=== PATIENT | female | born 1945 | race Caucasian/White ===

== ENCOUNTER 2017-07-29 15:10 | Inpatient (IN) ==
--- NOTE | 2017-07-29 15:28 | Emergency Department Note ---
Altered Mental Status HPI - General Chief Complaint: Fever Stated Complaint: Alterered Mental Status Time Seen by Provider: 07/29/17 15:13 Source: patient Mode of arrival: ambulatory Limitations: no limitations - History of Present Illness HPI Narrative: Episode of confusion while they were at [facility]. describes a blank stare, she denies headache, she recognizes her , she cannot tell me that time or the year, she is confused. No nausea or vomiting, no recent diarrhea does state that she's had a cough for a while, she denies headache denies chest pain no recent shortness of breath but then she is running a fever. denies episodes of confusion like this in the past, she was well up until they went to [facility]. No seizure-like activity noted, she was moving all fours, had a little trouble getting into the house, but no focal one sided weakness. MD complaint: altered mental status, confusion - Related Data Home Medications Medication Instructions Recorded Confirmed multivitamin,Ca,mineral-folic 1 tab PO QDAY tab 12/26/14 05/17/17 acid-herbal no.157 400 mcg tablet Previous Rx's Medication Instructions Recorded Loperamide HCl [Anti-Diarrheal] 2 mg PO QIDP PRN #20 tab 04/26/16 bisoprolol fumarate 5 mg tablet 5 mg PO QDAY #90 tab 12/15/16 lisinopril 20 mg tablet 20 mg PO QDAY #90 tab 01/17/17 benzonatate 200 mg capsule 200 mg PO TID PRN #60 cap 05/17/17 Allergies Allergy/AdvReac Type Severity Reaction Status Date / Time Wimnsby-Ssk-Okk Reductase Allergy Unknown Unknown Verified 01/17/17 09:17 Inhibitor ezetimibe [Zetia] AdvReac Intermediate Joint Pain Verified 01/17/17 09:17 tramadol AdvReac Intermediate Vomiting Verified 05/17/17 15:56 codeine [CODEINE] AdvReac Mild Nausea/Vomi Verified 01/17/17 09:17 ting Penicillins [PENICILLINS] AdvReac Mild NOT Unverified 01/17/17 09:17 EFFECTIVE FOR PT Review of Systems Limitations: ROS unobtainable due to patients medical condition Constitutional: Reports: fever Past Medical History - Past Medical History Source: nursing notes reviewed Medical history: Reports: arthritis, GERD, hypertension, other (allergic rhinitis) Psychiatric history: Reports: no psych history 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 Absent: conjunctival injection ENT: normal exam, normal oropharynx, mucous membranes moist, TM's normal bilaterally, normal external ear exam Neck: Present: normal inspection, full ROM, trachea midline. Absent: tenderness , meningismus, lymphadenopathy Chest: Present: normal inspection, symmetric chest wall rise, tenderness Respiratory: Present: normal lung sounds bilaterally. Absent: respiratory distress, wheezes Cardiovascular: Present: regular rate, normal rhythm, normal heart sounds Abdominal: Present: soft. Absent: distention, tenderness Extremities: Present: normal inspection, full ROM, normal capillary refill. Absent: tenderness, pedal edema Back: Present: normal inspection, full ROM. Absent: CVA tenderness (R), CVA tenderness (L) Neurological: Present: alert, reflexes normal, other (confused, but there is no slurring of speech,, cranial nerves otherwise intact. Disoriented to time). Absent: motor sensory deficit Course - Reevaluation(s) Reevaluation #1: Patient's chest x-ray was negative. Flu was negative. I had the signed a consent form, risks and complications discussed. We then proceeded with spinal tap with local anesthesia over the skin, local prep with Betadine and alcohol. Midline spinal needle passed without incident but unable to access the subdural space or interthecal space, no return of fluid. No apparent complications, she is not complaining of pain or discomfort in her legs , we will have anesthesia/radiology try with fluoroscopy. Reevaluation #2: Spinal tap was done in the radiology suite by Dr. Eaton, opening pressure was 7 cm and fluid was sent for culture and Gram stain. So far she has 2 red blood cells, 4 WBCs and her Gram stain is negative. Her head CT did show borderline atrophy, no acute changes. At this point she was covered with antibiotics, we will admit her for fever and confusion. Rule out meningitis/ encephalitis. Discussed with Dr. Flores Vital Signs Temperature 101.0 F H 07/29/17 15:12 Pulse Rate 89 07/29/17 15:12 Respiratory Rate 20 07/29/17 15:12 Blood Pressure 150/73 07/29/17 15:12 Pulse Oximetry (%) 95 07/29/17 15:12 Temperature 99.2 F H 07/29/17 18:00 Pulse Rate 91 H 07/29/17 17:57 Respiratory Rate 18 07/29/17 17:57 Blood Pressure 140/73 07/29/17 17:57 Pulse Oximetry (%) 96 07/29/17 17:57 Altered Mental Status - MDM Narrative Medical decision making narrative: impression is fever, confusion.. Undetermined etiology. Plan is hospital admission for rule out meningitis. - Lab Data Result diagrams: 07/29/17 15:10 07/29/17 15:10 Lab Results 07/29/17 07/29/17 07/29/17 Range/Units 15:10 15:10 15:10 WBC 12.9 H (4.5-11.0) K/mcL RBC 3.97 L (4.00-5.20) M/mcL Hgb 12.1 (12.0-15.0) g/dL Hct 34.8 L (36.0-48.0) % MCV 87.6 (80.0-100.0) fL MCH 30.5 (26.0-34.0) pg MCHC 34.8 (31.0-36.0) g/dL RDW 13.4 (11.5-14.5) % Plt Count 246 (140-440) K/mcL MPV 8.0 (7.4-10.4) fL Gran % 85.9 H (38.0-78.0) % Lymph % (Auto) 7.5 L (15.5-49.0) % [place] % (Auto) 6.5 (1.0-12.0) % Eos % (Auto) 0.1 (0.0-7.0) % Baso % (Auto) 0 (0.0-2.0) % Gran # 11.1 H (1.8-8.0) K/mcL Lymph # (Auto) 1.0 L (1.5-4.8) K/mcL [place] # (Auto) 0.8 (0.1-0.9) K/mcL Eos # (Auto) 0 (0.0-0.7) K/mcL Baso # (Auto) 0 (0.0-0.3) K/mcL VBG Lactic Acid 1.0 (0.5-2.2) mmol/L Sodium 141 (133-145) mmol/L Potassium 4.2 (3.3-5.1) mmol/L Chloride 102 (96-108) mmol/L Carbon Dioxide 26 (22-30) mmol/L Anion Gap 13.0 (8-16) BUN 16 (8-23) mg/dl Creatinine 0.9 (0.6-1.1) mg/dl GFR Calculation 64 Glucose 105 (70-105) mg/dL Calcium 9.4 (8.6-10.4) mg/dl Total Bilirubin 0.4 (0.0-1.0) mg/dL AST 18 (0-37) U/l ALT 17 (0-40) U/l Alkaline Phosphatase 77 (39-117) U/L C-Reactive Protein 0.4 (0.0-0.8) mg/dl Total Protein 7.3 (5.9-8.4) gm/dL Albumin 4.3 (3.2-5.2) gm/dL Globulin 3.0 (2.2-3.7) gm/dL Albumin/Globulin Ratio 1.4 (1.0-2.3) Urine Color Urine Appearance Urine pH (5.0-9.0) Ur Specific [place] (1.003-1.030) Urine Protein (NEG) mg/dL Urine Glucose (UA) (NEG) mg/dL Urine Ketones (NEG) mg/dL Urine Occult Blood (<5) sheela/mcL Urine Nitrate (NEG) Urine Bilirubin (NEG) mg/dL Urine Urobilinogen (NEG) mg/dL Ur Leukocyte Esterase (NEG) /uL CSF Source CSF Appearance CSF Color CSF RBC (0-1) /cumm CSF Total Nucleated Auto (0-5) /cumm CSF Neutrophils CSF Lymphocytes CSF Reactive Lymphs CSF Monocytes CSF Eosinophils % CSF Basophils CSF Macrophages CSF Plasma Cells CSF Diff Comment CSF Glucose (45-75) mg/dL CSF Total Protein (15.0-60.0) mg/dL Influenza A (Rapid) Influenza B (Rapid) 07/29/17 07/29/17 07/29/17 Range/Units 15:31 16:20 17:35 WBC (4.5-11.0) K/mcL RBC (4.00-5.20) M/mcL Hgb (12.0-15.0) g/dL Hct (36.0-48.0) % MCV (80.0-100.0) fL MCH (26.0-34.0) pg MCHC (31.0-36.0) g/dL RDW (11.5-14.5) % Plt Count (140-440) K/mcL MPV (7.4-10.4) fL Gran % (38.0-78.0) % Lymph % (Auto) (15.5-49.0) % [place] % (Auto) (1.0-12.0) % Eos % (Auto) (0.0-7.0) % Baso % (Auto) (0.0-2.0) % Gran # (1.8-8.0) K/mcL Lymph # (Auto) (1.5-4.8) K/mcL [place] # (Auto) (0.1-0.9) K/mcL Eos # (Auto) (0.0-0.7) K/mcL Baso # (Auto) (0.0-0.3) K/mcL VBG Lactic Acid (0.5-2.2) mmol/L Sodium (133-145) mmol/L Potassium (3.3-5.1) mmol/L Chloride (96-108) mmol/L Carbon Dioxide (22-30) mmol/L Anion Gap (8-16) BUN (8-23) mg/dl Creatinine (0.6-1.1) mg/dl GFR Calculation Glucose (70-105) mg/dL Calcium (8.6-10.4) mg/dl Total Bilirubin (0.0-1.0) mg/dL AST (0-37) U/l ALT (0-40) U/l Alkaline Phosphatase (39-117) U/L C-Reactive Protein (0.0-0.8) mg/dl Total Protein (5.9-8.4) gm/dL Albumin (3.2-5.2) gm/dL Globulin (2.2-3.7) gm/dL Albumin/Globulin Ratio (1.0-2.3) Urine Color Yellow Urine Appearance Clear Urine pH 7.5 (5.0-9.0) Ur Specific [place] 1.020 (1.003-1.030) Urine Protein Neg (NEG) mg/dL Urine Glucose (UA) Norm (NEG) mg/dL Urine Ketones Neg (NEG) mg/dL Urine Occult Blood Neg (<5) sheela/mcL Urine Nitrate Neg (NEG) Urine Bilirubin Neg (NEG) mg/dL Urine Urobilinogen Norm (NEG) mg/dL Ur Leukocyte Esterase Neg (NEG) /uL CSF Source Tube #4 CSF Appearance Clear CSF Color Colorless CSF RBC 2 H (0-1) /cumm CSF Total Nucleated Auto 4 (0-5) /cumm CSF Neutrophils Not Reportable CSF Lymphocytes Not Reportable CSF Reactive Lymphs Not Reportable CSF Monocytes Not Reportable CSF Eosinophils % Not Reportable CSF Basophils Not Reportable CSF Macrophages Not Reportable CSF Plasma Cells Not Reportable CSF Diff Comment Not Reportable CSF Glucose 59 (45-75) mg/dL CSF Total Protein 53 (15.0-60.0) mg/dL Influenza A (Rapid) Presumed negative Influenza B (Rapid) Presumed negative Disposition Pt seen by [facility] FACULTY ASSISTANT/PA only: No Clinical Impression: Fever, Fever of unknown origin Disposition: Xfer As Inpt ([facility]) Condition: Fair Referrals: Aditya Rand PA-C [Primary Care Provider] -
[2017-07-29] MEDS ORDERED: LACTATED RINGERS 1,000 ML IV ONE (15:30)
[2017-07-29] MEDS ORDERED: ACETAMINOPHEN 650 MG SUPP.RECT PR ONE (15:39)
--- NOTE | 2017-07-29 15:51 | Cat Scan Report ---
History: Confusion and flu symptoms Findings: The brain was imaged without contrast at 2.5 mm intervals. There is mild generalized cerebral atrophy, most apparent in the frontal lobes and around the sylvian fissure. There is no evidence of infarct, hemorrhage or mass effect. The ventricles are borderline dilated. There is no evidence of transependymal reabsorption of CSF.. There is no abnormal extra-axial fluid collection. Trace amount of fluid layers posteriorly in the sphenoid sinus due to low-grade sinusitis. Impression: Cerebral atrophy with borderline hydrocephalus Dr. Jerez was called with the results Interpreted and Authenticated by: Jesus Eaton 07/29/17
--- NOTE | 2017-07-29 16:11 | XRay Report ---
HISTORY: Reason for Exam:cough FINDINGS: There are thin linear scars in the lingula and left lung base. These were present on the prior abdomen CT done on 04/26/16. The lungs are otherwise clear, without evidence of pneumonia, mass or congestive heart failure. The heart size is normal. The spine has a mild kyphoscoliotic curvature with degenerative disc disease and arthritis at multiple levels. IMPRESSION: No acute abnormality Interpreted and Authenticated by: Jesus Eaton 07/29/17
[2017-07-29] MEDS ORDERED: fentaNYL 100 MCG/2 ML VIAL IV ONE (16:19)
[2017-07-29 17:05] LABS: Appearance,Urine CLEAR; Bilirubin,Urine NEG (NEG); Color,Urine YELLOW; Glucose,Urine (UA) NORM (NEG); Leukocyte Esterase,Urine NEG /uL (NEG); PH,Urine 7.5 (5.0-9.0); Protein,Urine NEG (NEG); Urine Blood NEG ery/mcL (<5); Urobilinogen,Urine NORM (NEG)
[2017-07-29 17:08] LABS: Basophils # (Auto) 0 K/mcL (0.0-0.3); Basophils % (Auto) 0 % (0.0-2.0); Eosinophils # (Auto) 0 K/mcL (0.0-0.7); Eosinophils % (Auto) 0.1 % (0.0-7.0); Granulocytes % (Auto) 85.9 % (38.0-78.0); Lymphocytes % (Auto) 7.5 % (15.5-49.0); Mean Cell Volume 87.6 fL (80.0-100.0); Mean Corpuscular HGB Conc 34.8 g/dL (31.0-36.0); Mean Corpuscular Hemoglobin 30.5 pg (26.0-34.0); Monocytes # (Auto) 0.8 K/mcL (0.1-0.9); Monocytes % (Auto) 6.5 % (1.0-12.0); Platelet Count 246 K/mcL (140-440); RBC 3.97 M/mcL (4.00-5.20); Red Cell Distribution Width 13.4 % (11.5-14.5)
[2017-07-29 17:10] LABS: ALT/SGPT 17 U/l (0-40); Albumin 4.3 gm/dL (3.2-5.2); Albumin/Globulin Ratio 1.4 (1.0-2.3); Alkaline Phosphatase 77 U/L (39-117); Blood Urea Nitrogen 16 mg/dl (8-23); C-Reactive Protein 0.4 mg/dl (0.0-0.8)
[2017-07-29] MEDS ORDERED: DEXAMETHASONE 10 MG/ML VIAL IV ONE (17:27)
[2017-07-29] MEDS ORDERED: cefTRIAXone 1 GM VIAL IV ONE ×2 (17:29→21:15)
[2017-07-29] MEDS ORDERED: VANCOMYCIN 1,500 MG in 0.9 % SODIUM CHLORIDE 500 ML IV ONE (17:30)
[2017-07-29] MEDS ORDERED: AMPICILLIN SODIUM 1 GM in 0.9 % SODIUM CHLORIDE 50 ML IV ONE ×2 (17:35→22:00)
--- NOTE | 2017-07-29 17:52 | XRay Report ---
HISTORY: Reason for Exam:confusion, fever FINDINGS: Crosstable lateral film was obtained. This shows severe narrowing between the spinous processes from L2 through S1 due to disc space narrowing and arthritis. There is also grade 1 spondylolisthesis at L4-5. The skin over the lumbar spine was prepped with Betadine and then anesthetized with 1% lidocaine. Using fluoroscopic guidance a 22-gauge needle was inserted into the spinal canal at the L1-2 level. The opening pressure was 7 cc of CSF. 5 cc of clear CSF was removed and sent to laboratory for analysis. She tolerated the procedure well without complication. IMPRESSION: Successful lumbar puncture obtaining 5 cc of clear CSF Interpreted and Authenticated by: Jesus Eaton 07/29/17
[2017-07-29] MEDS ORDERED: ONDANSETRON 4 MG/2 ML VIAL IV ONE (18:11)
[2017-07-29] MEDS ORDERED: diphenhydrAMINE 50 MG/ML VIAL IV ONE (18:17)
[2017-07-29 18:31] LABS: Glucose,CSF 59 mg/dL (45-75)
[2017-07-29 18:51] LABS: Appearance,CSF CLEAR; Nucleated Cells,CSF 4 /cumm (0-5); Red Blood Cell,CSF 2 /cumm (0-1)
[2017-07-29 20:05] LABS: Lymphocytes,CSF 54 % (40-80); Total Cell Ct,CSF 100
--- NOTE | 2017-07-29 20:16 | Internal Med History&Physical ---
Medical - H&P: HPI Patient information: Note initiated : 07/29/17 at 8:09 pm Service Date, if different from initiated Date: [] Patient: Queenie Marrero a 71 y/o F admitted on for Alterered Mental Status. Chief Complaint: [] History of present illness: Ms. Marrero is a 71 year old Female with h/o HTN, presens to the ER today for Altered mental status. History provided by the patients . The patient was her usual self upto 2. 30 pm this afternoon. THe patient and her were at [employer], The patient noticed that she was blankly staring in space. He asked if she was ok, and she nodded, but she was clearly not her self, she had non specific movements of both hands, ongoing. At the time of leaving the restaurant, she forgot to take her coat and purse, which is unlike her. She had some difficulty in getting in the car, after going home too , she was not her self, she was unable to get out of the car, forgot to remove seat belt and trying to get out without understanding which side to get out from. The patient was therefore brought to the ER for further evaluation. The patient has no recollection of these events. The patient notes she does not remember any headache, visual c hanges, changes in hearing, or difficulty in swallowing, she has cough, for 3 months, she nicolette sob, chest pain, shortness of breath, GI symptms (diarrhea present intermittently with beans), no urinary complaints, has chr back pain, but no joint pain, swelling or skin rash. Pt has no headache, no photophobia, phonophobia, no loss of bowel bladder continence. per the , she had no slurring of speech, no weakness in one side of the body, no crooked face. Did however had blank stare. The patient in the ER was noted to be febrile, tmax of 101.9, she has leucocytosis, X ray chest was neg, chemistry neg, her ua neg, Ct head showed low ruth ann sinusitis, mild hydrocephalus. LP done shows 2 rbc, 4 neutorohils, normal protein and normal glucose. Given no other e/o for infection and behavorial change found, she was started on meningitis protocol, IV antibiotics given and admitted to the hospital for further management The patient by the time of my evaluation was back to her baseline status, complained of some fatigue, but no other complaints. All systems: reviewed and no additional remarkable complaints except as stated ( as per HPI) Medical - H&P: H Medical history: Medical History (Last Reviewed 01/17/17 @ 09:40 by Aditya Rand PA-C) Chronic diarrhea (Resolved) Back pain (Acute) Gastroenteritis (Resolved) Pneumonia (Resolved) Pertussis (Resolved) Osteoarthritis (Chronic) Hypertension, essential (Chronic) Hyperlipidemia (Chronic) Hypercholesterolemia (Chronic) Chronic cough (Chronic) Arthritis (Chronic) Allergic rhinitis (Chronic) History of Clostridium difficile (Resolved) Right knee meniscal tear (Resolved) Surgical history: Past Surgical History (Last Updated 07/14/17 @ 15:01 by Tarah Ahmadi) H/O section (Resolved) H/O foot surgery (Resolved) History of arthroscopic knee surgery (Resolved) History of carpal tunnel release (Resolved) History of esophagogastroduodenoscopy (Resolved 08/06/15) History of thumb surgery (Resolved) Pertinent family history: Family History (Last Reviewed 01/17/17 @ 09:40 by Aditya Rand PA-C) Unknown Family history of carrier of genetic disease parents with stroke. Medical - H&P: Meds Home Medications Medication Instructions Recorded Confirmed Type multivitamin,Ca,mineral-folic 1 tab PO QDAY tab 12/26/14 07/29/17 History acid-herbal no.157 400 mcg tablet Loperamide HCl [Anti-Diarrheal] 2 mg PO QIDP PRN #20 tab 04/26/16 07/29/17 Rx bisoprolol fumarate 5 mg tablet 5 mg PO QDAY #90 tab 12/15/16 07/29/17 Rx lisinopril 20 mg tablet 20 mg PO QDAY #90 tab 01/17/17 07/29/17 Rx benzonatate 200 mg capsule 200 mg PO TID PRN #60 cap 05/17/17 07/29/17 Rx Allergies Allergy/AdvReac Type Severity Reaction Status Date / Time Yshulup-Bze-Zsq Reductase Allergy Unknown Unknown Verified 01/17/17 09:17 Inhibitor ezetimibe [Zetia] AdvReac Intermediate Joint Pain Verified 01/17/17 09:17 tramadol AdvReac Intermediate Vomiting Verified 05/17/17 15:56 codeine [CODEINE] AdvReac Mild Nausea/Vomi Verified 01/17/17 09:17 ting Penicillins [PENICILLINS] AdvReac Mild NOT Unverified 01/17/17 09:17 EFFECTIVE FOR PT Medical - H&P: Exam - Constitutional Vitals: Temp Pulse Resp BP Pulse Ox 99.2 F H 91 H 18 140/73 96 07/29/17 18:00 07/29/17 17:57 07/29/17 17:57 07/29/17 17:57 07/29/17 17:57 Medical - H&P: Reslt - Labs CBC & Chem 7: 07/29/17 15:10 07/29/17 15:10 Labs: Short CBC 07/29/17 Range/Units 15:10 WBC 12.9 H (4.5-11.0) K/mcL Hgb 12.1 (12.0-15.0) g/dL Hct 34.8 L (36.0-48.0) % Plt Count 246 (140-440) K/mcL BMP 07/29/17 15:10 Sodium 141 Potassium 4.2 Chloride 102 Carbon Dioxide 26 BUN 16 Creatinine 0.9 Glucose 105 Calcium 9.4 Liver Function 07/29/17 Range/Units 15:10 Total Bilirubin 0.4 (0.0-1.0) mg/dL AST 18 (0-37) U/l ALT 17 (0-40) U/l Alkaline Phosphatase 77 (39-117) U/L Albumin 4.3 (3.2-5.2) gm/dL Urine 07/29/17 Range/Units 16:20 Urine Color Yellow Urine Appearance Clear Urine pH 7.5 (5.0-9.0) Ur Specific [place] 1.020 (1.003-1.030) Urine Protein Neg (NEG) mg/dL Urine Glucose (UA) Norm (NEG) mg/dL - ABG Interpretation Additional comments: GENERAL: The patient is a well-developed, well-nourished in no apparent distress. Is alert and oriented x3. VITAL SIGNS: Reviewed and as noted elsewhere. HEENT: Head is normocephalic and atraumatic. Extraocular muscles are intact. Pupils are equal, round, and reactive to light. Nares appeared normal. Mouth appears any without lesions. Mucous membranes are moist. NECK: Normal to inspection, Supple, No lymphadenopathy or thyromegaly. LUNGS: Air entry equal on both sides, no wheezing, right basilar crackles upto lower 1/3 of the lung field, left side clear HEART: Regular rate and rhythm normal, S1 and S2 heard, no Gallop, S3 or Rub Noted, No Gross murmur heard. ABDOMEN: Soft, nontender, and nondistended. Positive bowel sounds. No hepatosplenomegaly was noted. EXTREMITIES: No cyanosis, clubbing, rash, lesions or edema. NEUROLOGIC: Cranial nerves II through XII are grossly intact. Motor strength in upper extremity 5/5, no pronator drift, lower extremity 5/5, sensations intact to light and deep touch. no nystagmus. PSYCHIATRIC: Normal affect, Normal Mood. Appropriate Behavior. SKIN: No ulceration or wounds noted, No jaundice, No rash noted. Medical - H&P: A/P - Narrative A/P Narrative: A/P Altered Mental status/ meningitis : etiology uncertain, CSF seems clean, will cover with Antibiotics till we have neg cultures. Get MRI in AM. Atypical Seizure episode? but this would not explain the fever. The patient also did not have typical meningeal signs, photophobia,. headache, neck stiffness. TIA: its plausible that patient may have had a TIA in conjunction with a viral illness, though the probability is low. Will monitor on tele, GEt MRI in AM Cough: Exam has right lower lobe crackles, x ray 2 view is neg, will get CT chest r/o pna. Although not used often, but she has clinical symtoms to suggest a pna. she is well covered with abx for now. HTN: resume home bp medications Full code Regular diet DVT hep sq Social History - Tobacco smoking status: Never smoker - Alcohol alcohol intake frequency: does not drink - Substance use substance use type: does not use
[2017-07-29] MEDS ORDERED: NALOXONE HCL 0.4 MG/ML VIAL IV PRN (21:02)
[2017-07-29] MEDS ORDERED: ACETAMINOPHEN 325 MG TABLET PO PRN (21:02)
[2017-07-29] MEDS ORDERED: ONDANSETRON 4 MG/2 ML VIAL IV PRN (21:02)
[2017-07-29] MEDS ORDERED: VANCOMYCIN PER PHARMACY IV ONE (21:02)
[2017-07-29] MEDS ORDERED: AMPICILLIN SODIUM 2 GM VIAL IV SCH (21:02)
[2017-07-29] MEDS ORDERED: ASPIRIN 325 MG ENTERIC COATED TABLET PO ONE (21:02)
[2017-07-29] MEDS ORDERED: MAGNESIUM HYDROXIDE 30 ML ORAL.SUSP PO PRN (21:02)
[2017-07-29] MEDS ORDERED: ACYCLOVIR SODIUM 500 MG VIAL IV SCH (21:02)
[2017-07-29] MEDS: diphenhydrAMINE 50 MG/ML VIAL IV PRN (21:58)
[2017-07-29] MEDS: HEPARIN 5,000 UNIT/ML VIAL SQ SCH (22:01)
[2017-07-29] MEDS: 0.9 % SODIUM CHLORIDE 10 ML SYRINGE IV SCH (22:04)
[2017-07-29] MEDS: ACYCLOVIR SODIUM 800 MG in 0.9 % SODIUM CHLORIDE 150 ML IV SCH (22:05)
[2017-07-30] MEDS: AMPICILLIN SODIUM 2 GM in 0.9 % SODIUM CHLORIDE 100 ML IV SCH ×6 (02:10→22:53)
[2017-07-30 06:10] LABS: Basophils # (Auto) 0 K/mcL (0.0-0.3); Basophils % (Auto) 0 % (0.0-2.0); Eosinophils # (Auto) 0.4 K/mcL (0.0-0.7); Eosinophils % (Auto) 2.8 % (0.0-7.0); Granulocytes % (Auto) 90.3 % (38.0-78.0); Lymphocytes # (Auto) 0.6 K/mcL (1.5-4.8); Lymphocytes % (Auto) 4.3 % (15.5-49.0); Mean Cell Volume 89.5 fL (80.0-100.0); Mean Corpuscular HGB Conc 34.3 g/dL (31.0-36.0); Mean Corpuscular Hemoglobin 30.7 pg (26.0-34.0); Monocytes # (Auto) 0.3 K/mcL (0.1-0.9); Monocytes % (Auto) 2.6 % (1.0-12.0); Platelet Count 230 K/mcL (140-440); RBC 3.71 M/mcL (4.00-5.20); Red Cell Distribution Width 13.4 % (11.5-14.5)
[2017-07-30 06:35] LABS: Estimated Average Glucose(eAG) 108 mg/dL; Hemoglobin A1C 5.4 % HGB (4.0-6.0)
[2017-07-30] MEDS: ACYCLOVIR SODIUM 800 MG in 0.9 % SODIUM CHLORIDE 150 ML IV SCH ×3 (06:38→20:55)
[2017-07-30] MEDS: 0.9 % SODIUM CHLORIDE 10 ML SYRINGE IV SCH ×4 (06:39→22:53)
[2017-07-30 06:44] LABS: ALT/SGPT 16 U/l (0-40); Albumin 3.9 gm/dL (3.2-5.2); Albumin/Globulin Ratio 1.5 (1.0-2.3); Alkaline Phosphatase 70 U/L (39-117); Bilirubin,Direct < 0.2 mg/dL (0.0-0.3); Blood Urea Nitrogen 20 mg/dl (8-23); Gamma Glutamyl Transpeptidase 15 U/L (5-36); HDL Cholesterol 46 mg/dl (>40); LDL Cholesterol,Calculated 149 mg/dl (SEE CHART); Uric Acid 4.4 mg/dL (2.5-8.0)
[2017-07-30] MEDS ORDERED: VANCOMYCIN PER PHARMACY IV SCH (07:15)
--- NOTE | 2017-07-30 08:29 | Cat Scan Report ---
CLINICAL INFORMATION: Fever cough and confusion TECHNIQUE: 2.5 mm axial slices were obtained from the lung apices through the bases without intravenous contrast. Sagittal, coronal and axial reformatted images were processed and reviewed at bone, lung and soft tissue windows. 7 mm axial MIP images were also reconstructed. FINDINGS: There is partial atelectasis the right middle lobe. There is an intraluminal filling defect in the bronchus to the medial segment of the right middle lobe. This is causing near complete obstruction. Lateral to this within the parenchyma of the right middle lobe there is a well-circumscribed 6 mm nodule. There is a very subtle patchy alveolar infiltrate in the superior segment of lingula. Linear bands of scar tissue are present in the inferior segment lingula and posteriorly in both lower lobes. These bands of scar tissue were present on the prior abdomen CT done on 04/26/16. There are new bands of discoid atelectasis in the superior segment of the right lower lobe and lateral basal segment right lower lobe. No pleural effusion is present. There are no abnormally enlarged lymph nodes. The heart is normal in size and contour. There are few calcified plaques in the coronary arteries. IMPRESSION: Partial atelectasis of the right middle lobe due to soft tissue lesion causing occlusion of the middle lobe bronchus. This could be foreign body, mucous plugging or a lung cancer. This could be further evaluated by bronchoscopy. 6 mm pulmonary nodule in the right middle lobe New discoid atelectasis in both lower lobes Subtle alveolar infiltrate in the superior segment of the lingula Dr. Jerez was called with the results Interpreted and Authenticated by: Jesus Eaton 07/30/17
[2017-07-30] MEDS: LOPERAMIDE 2 MG CAPSULE PO PRN (10:20)
[2017-07-30] MEDS: guaiFENesin/DEXTROMETHORPHAN ORAL SOL PO PRN ×2 (10:30→20:55)
[2017-07-30] MEDS: BISOPROLOL 5 MG TABLET PO SCH (11:22)
[2017-07-30] MEDS: VANCOMYCIN 1,500 MG in 0.9 % SODIUM CHLORIDE 500 ML IV SCH ×2 (11:23→20:55)
[2017-07-30] MEDS: HEPARIN 5,000 UNIT/ML VIAL SQ SCH ×2 (11:23→20:55)
[2017-07-30] MEDS: cefTRIAXone 2 GM VIAL IV SCH ×2 (11:23→21:00)
[2017-07-30] MEDS: LISINOPRIL 20 MG TABLET PO SCH (11:23)
[2017-07-30] MEDS: diphenhydrAMINE 50 MG/ML VIAL IV PRN ×2 (11:24→20:53)
[2017-07-30] MEDS ORDERED: GADOBUTROL 10 MMOL/10 ML VIAL IV ONE (11:42)
--- NOTE | 2017-07-30 12:32 | Internal Med Progress Note ---
Medical - PN: Subj Patient information: Note initiated : 07/30/17 at 12:28 pm Service Date, if different from initiated Date: [] Patient: Queenie Marrero a 71 y/o F admitted on 07/29/17 for Alterered Mental Status. Chief Complaint: [] Interval history: Ms. Marrero is a 71 year old Female with h/o HTN, presens to the ER today for Altered mental status. History provided by the patients . The patient was her usual self upto 2. 30 pm this afternoon. THe patient and her were at [employer], The patient noticed that she was blankly staring in space. He asked if she was ok, and she nodded, but she was clearly not her self, she had non specific movements of both hands, ongoing. At the time of leaving the restaurant, she forgot to take her coat and purse, which is unlike her. She had some difficulty in getting in the car, after going home too , she was not her self, she was unable to get out of the car, forgot to remove seat belt and trying to get out without understanding which side to get out from. The patient was therefore brought to the ER for further evaluation. The patient has no recollection of these events. The patient notes she does not remember any headache, visual c hanges, changes in hearing, or difficulty in swallowing, she has cough, for 3 months, she nicolette sob, chest pain, shortness of breath, GI symptms (diarrhea present intermittently with beans), no urinary complaints, has chr back pain, but no joint pain, swelling or skin rash. Pt has no headache, no photophobia, phonophobia, no loss of bowel bladder continence. per the , she had no slurring of speech, no weakness in one side of the body, no crooked face. Did however had blank stare. The patient in the ER was noted to be febrile, tmax of 101.9, she has leucocytosis, X ray chest was neg, chemistry neg, her ua neg, Ct head showed low ruth ann sinusitis, mild hydrocephalus. LP done shows 2 rbc, 4 neutorohils, normal protein and normal glucose. Given no other e/o for infection and behavorial change found, she was started on meningitis protocol, IV antibiotics given and admitted to the hospital for further management The patient by the time of my evaluation was back to her baseline status, complained of some fatigue, but no other complaints. jul 30 patient seen and examined, no acute overnight events. Hemodynamically stable labs reviewed. CSF culture is still negative. WBC count slightly worse today, could be due to use of dexamethasone yesterday. Pro-calcitonin is normal CT scan reviewed, patient has bibasilar atelectasis, there is a questionable mass or mucous plug in the right middle bronchus with resulting atelectasis of the right middle lobe. Patient may have a tumor or just a mucous plug, advised to consider pulmonary consult for bronchoscopy. We will discuss with pulmonary on Tuesday if available or can be scheduled for bronchoscopy as an outpatient. Patient did not have any further confusion spells, MRI done with and without contrast results pending. Pertinent ROS: mild headache today. Denies chest pain, palpitations has cough and but no shortness of breath. Denies abdominal pain, nausea or vomiting. - Constitutional Vitals: Vital Signs Temp Pulse Resp BP Pulse Ox 98.8 F 86 18 115/63 98 07/30/17 12:08 07/30/17 02:00 07/30/17 00:33 07/30/17 12:08 07/30/17 12:08 Period Temp Pulse Resp BP Sys/Uriostegui Pulse Ox Last 24 Hr 98.8 F-102.5 F 81-96 12-22 84-150/59-74 93-99 Intake and Output 07/29/17 07/30/17 07/30/17 21:59 05:59 13:59 Intake Total 1139 / 1139 1071 / 1071 450 / 450 Output Total 1150 / 1150 500 / 500 Balance 1139 / 1139 -79 / -79 -50 / -50 Weight 187 lb 8 oz Intake & Output: Intake & Output 07/29/17 07/30/17 07/30/17 21:59 05:59 13:59 Intake Total 1139 / 1139 1071 / 1071 450 / 450 Output Total 1150 / 1150 500 / 500 Balance 1139 / 1139 -79 / -79 -50 / -50 Weight 187 lb 8 oz Intake: IV 1139 / 1139 711 / 711 250 / 250 Zovirax 800 mg In Sodium 150 / 150 150 / 150 Chloride 0.9% 150 ml @ 100 mls/ hr IV Q8H [facility] Rx#:[id number] Ampicillin 2 gm In Sodium 100 / 100 100 / 100 Chloride 0.9% 100 ml @ 100 mls/ hr IV Q4H [facility] Rx#:[id number] Lactated Ringers 1,000 ml @ 1000 / 1000 Wide Open IV .Q0M ONE Rx#: [id number] Vancomycin 1,500 mg In Sodium 139 / 139 361 / 361 Chloride 0.9% 500 ml @ 333.3 mls/hr IV ONCE [facility] Rx#: [id number] Oral 360 / 360 200 / 200 Output: Void Amount 1150 / 1150 500 / 500 Other: Meal Breakfast Percent of Meal Consumed 100% Feeding Ability Independent Exam: Constitutional; Afebrile, cooperative, alert, not in distress. Eyes- No icterus, , No periorbital swelling Ears- Ext ear normal, hearing normal to conversation. Neck- Midline trachea, supple Respiratory system: Air Entry equal on both sides, No crackles or wheezing, no rhonchi. (right sided crackles heard yesterday are no longer present) CVS- Rate rhythm regular, S1,S2 heard, no gallop, no rub. Abdomen- Soft nontender abdomen, no organomegaly, no tenderness, no guarding or rigidity, RECORDIST CHIEF- AOOx3, moving all extremities, no gross focal deficit noted. Medical - PN: Obj Da - Labs CBC & Chem 7: 07/30/17 03:30 07/30/17 03:30 Labs: Abnormal Lab Results 07/30/17 07/30/17 07/29/17 03:30 03:30 17:35 WBC 13.2 H RBC 3.71 L Hgb 11.4 L Hct 33.2 L Gran % 90.3 H Lymph % (Auto) 4.3 L Gran # 11.9 H Lymph # (Auto) 0.6 L Glucose 147 H Cholesterol 204 H LDL Cholesterol, Calc 149 H Non-HDL Cholesterol 158 H CSF RBC 2 H 07/29/17 15:10 WBC 12.9 H RBC 3.97 L Hgb Hct 34.8 L Gran % 85.9 H Lymph % (Auto) 7.5 L Gran # 11.1 H Lymph # (Auto) 1.0 L Glucose Cholesterol LDL Cholesterol, Calc Non-HDL Cholesterol CSF RBC Meds: Medications Acetaminophen (Tylenol) 650 mg PO Q6HP PRN PRN Reason: PAIN/FEVER > 101 Bisoprolol Fumarate (Zebeta) 5 mg PO QDAY [facility] Last Admin: 07/30/17 11:22 Dose: 5 mg Ceftriaxone Sodium (Rocephin) 2 gm IV Q12H [facility] Last Admin: 07/30/17 11:23 Dose: 2 gm Diphenhydramine HCl (Benadryl) 25 mg IV Q4HP PRN PRN Reason: Allergic Symptoms Last Admin: 07/30/17 11:24 Dose: 25 mg Guaifenesin (Robitussin Dm) 10 ml PO Q4HP PRN PRN Reason: Cough Last Admin: 07/30/17 10:30 Dose: 10 ml Heparin Sodium (Porcine) (Heparin) 5,000 unit SQ Q12 [facility] Last Admin: 07/30/17 11:23 Dose: 5,000 unit Acyclovir Sodium 800 mg/ (Sodium Chloride) 150 mls @ 100 mls/hr IV Q8H [facility] Last Infusion: 07/30/17 08:08 Dose: Infused Ampicillin Sodium 2 gm/ Sodium (Chloride) 100 mls @ 100 mls/hr IV Q4H [facility] Last Admin: 07/30/17 11:24 Dose: 100 mls/hr Vancomycin HCl 1,500 mg/ (Sodium Chloride) 500 mls @ 333.3 mls/hr IV Q12H [facility] Last Admin: 07/30/17 11:23 Dose: 300 mls/hr Lisinopril (Zestril) 20 mg PO QDAY [facility] Last Admin: 07/30/17 11:23 Dose: 20 mg Loperamide HCl (Imodium) 2 mg PO PRN PRN PRN Reason: Diarrhea Last Admin: 07/30/17 10:20 Dose: 2 mg Magnesium Hydroxide (Milk Of Magnesia) 30 ml PO DAILYP PRN PRN Reason: Constipation Naloxone HCl (Narcan) 0.1 mg IV Q2MIN PRN PRN Reason: Opiate Reversal Ondansetron HCl (Zofran) 4 mg IV Q4HP PRN PRN Reason: Nausea And Vomiting Sodium Chloride (Saline Flush) 10 ml IV Q8 [facility] Last Admin: 07/30/17 06:39 Dose: 10 ml Vancomycin HCl (Vancomycin Per Pharmacy) 1 [place] IV [facility] [place] - PN: A/P - Time Spent With Patient Total time spent is greater than 50% in coordination of care (as documented) at patient's floor/unit and/or counseling patient: - Narrative A/P Narrative: A/P Altered Mental status/ meningitis : etiology uncertain, CSF seems clean, will cover with Antibiotics till we have neg cultures, TIA ? . No recurrent spells, MRI pending. monitor for now. Right bronchial lesion: noted on CT Scan, incentive spirometery, plan for bronchoscopy, likely as outpatient. Cough: CT shows mucous plug, atlectasis, possible bronhial lesion. Left lingular infiltrate, on broad spectrum abx. for meningitis coverage. HTN: resume home bp medications Full code Regular diet DVT hep sq Medical - PN: Qual - VTE Deep Vein Thrombosis/Pulmonary Embolism Present on Admission: No
--- NOTE | 2017-07-30 13:47 | Magnetic Resonance Report ---
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 FINDINGS: No intracranial mass or hemorrhage or infarct are present. No abnormal enhancement is present. Mild generalized cerebral atrophy is present above the tentorium. The ventricles are prominent. There is no transependymal reabsorption of CSF. There few small scattered, nonenhancing white matter lesions in both parietal lobes and frontal lobes. This is most likely due to age-related ischemia or degeneration. No inflammatory process is present intracranially. There is no abnormal extra-axial fluid collection or mass. There is mucosal thickening along the seaman of many of the ethmoid air cells and both frontal sinuses. There is also fluid in a couple posterior mastoid air cells and left side. No meningitis is detected on this exam. There has been no significant change from the head CT performed yesterday. IMPRESSION: Normal age-related degenerative changes in the brain. No acute intracranial abnormality is present. Mild sinusitis and mild left mastoiditis Interpreted and Authenticated by: Jesus Eaton 07/30/17
[2017-07-30] MEDS ORDERED: IBUPROFEN 200 MG TABLET PO PRN (20:12)
[2017-07-31] MEDS: AMPICILLIN SODIUM 2 GM in 0.9 % SODIUM CHLORIDE 100 ML IV SCH ×5 (02:08→16:43)
[2017-07-31] MEDS: 0.9 % SODIUM CHLORIDE 10 ML SYRINGE IV SCH ×4 (05:31→09:26)
[2017-07-31] MEDS: ACYCLOVIR SODIUM 800 MG in 0.9 % SODIUM CHLORIDE 150 ML IV SCH (05:31)
[2017-07-31 05:56] LABS: Basophils # (Auto) 0 K/mcL (0.0-0.3); Basophils % (Auto) 0.3 % (0.0-2.0); Eosinophils # (Auto) 0.3 K/mcL (0.0-0.7); Eosinophils % (Auto) 3.3 % (0.0-7.0); Granulocytes % (Auto) 75.2 % (38.0-78.0); Lymphocytes # (Auto) 1.4 K/mcL (1.5-4.8); Lymphocytes % (Auto) 15.6 % (15.5-49.0); Mean Cell Volume 89.2 fL (80.0-100.0); Mean Corpuscular HGB Conc 34.1 g/dL (31.0-36.0); Mean Corpuscular Hemoglobin 30.4 pg (26.0-34.0); Monocytes # (Auto) 0.5 K/mcL (0.1-0.9); Monocytes % (Auto) 5.6 % (1.0-12.0); Platelet Count 198 K/mcL (140-440); RBC 3.23 M/mcL (4.00-5.20); Red Cell Distribution Width 13.5 % (11.5-14.5)
[2017-07-31 06:34] LABS: ALT/SGPT 17 U/l (0-40); Albumin 3.6 gm/dL (3.2-5.2); Albumin/Globulin Ratio 1.6 (1.0-2.3); Alkaline Phosphatase 56 U/L (39-117); Bilirubin,Direct < 0.2 mg/dL (0.0-0.3); Blood Urea Nitrogen 24 mg/dl (8-23); Gamma Glutamyl Transpeptidase 11 U/L (5-36); Uric Acid 4.3 mg/dL (2.5-8.0)
[2017-07-31] MEDS: LISINOPRIL 20 MG TABLET PO SCH (08:57)
[2017-07-31] MEDS: HEPARIN 5,000 UNIT/ML VIAL SQ SCH (08:57)
[2017-07-31] MEDS: BISOPROLOL 5 MG TABLET PO SCH (08:57)
[2017-07-31] MEDS: cefTRIAXone 2 GM VIAL IV SCH (08:57)
[2017-07-31] MEDS: LOPERAMIDE 2 MG CAPSULE PO PRN ×3 (09:12→14:36)
[2017-07-31] MEDS: guaiFENesin/DEXTROMETHORPHAN ORAL SOL PO PRN (09:30)
[2017-07-31] MEDS: VANCOMYCIN 1,500 MG in 0.9 % SODIUM CHLORIDE 500 ML IV SCH (09:56)
[2017-07-31] MEDS ORDERED: MAGNESIUM HYDROXIDE 30 ML ORAL.SUSP PO PRN (10:18)
[2017-07-31] MEDS ORDERED: guaiFENesin/DEXTROMETHORPHAN ORAL SOL PO PRN (10:18)
[2017-07-31] MEDS ORDERED: NALOXONE HCL 0.4 MG/ML VIAL IV PRN (10:18)
[2017-07-31] MEDS ORDERED: VANCOMYCIN PER PHARMACY IV SCH (10:18)
[2017-07-31] MEDS ORDERED: IBUPROFEN 200 MG TABLET PO PRN (10:18)
[2017-07-31] MEDS ORDERED: ACETAMINOPHEN 325 MG TABLET PO PRN (10:18)
[2017-07-31] MEDS ORDERED: ONDANSETRON 4 MG/2 ML VIAL IV PRN (10:18)
[2017-07-31] MEDS ORDERED: diphenhydrAMINE 50 MG/ML VIAL IV PRN (10:18)
--- NOTE | 2017-07-31 10:40 | Internal Med Progress Note ---
Medical - PN: Subj Patient information: Note initiated : 07/31/17 at 10:38 am Service Date, if different from initiated Date: [] Patient: Queenie Marrero a 71 y/o F admitted on 07/29/17 for Alterered Mental Status. Chief Complaint: [] Interval history: Ms. Marrero is a 71 year old Female with h/o HTN, presens to the ER today for Altered mental status. History provided by the patients . The patient was her usual self upto 2. 30 pm this afternoon. THe patient and her were at [employer], The patient noticed that she was blankly staring in space. He asked if she was ok, and she nodded, but she was clearly not her self, she had non specific movements of both hands, ongoing. At the time of leaving the restaurant, she forgot to take her coat and purse, which is unlike her. She had some difficulty in getting in the car, after going home too , she was not her self, she was unable to get out of the car, forgot to remove seat belt and trying to get out without understanding which side to get out from. The patient was therefore brought to the ER for further evaluation. The patient has no recollection of these events. The patient notes she does not remember any headache, visual c hanges, changes in hearing, or difficulty in swallowing, she has cough, for 3 months, she nicolette sob, chest pain, shortness of breath, GI symptms (diarrhea present intermittently with beans), no urinary complaints, has chr back pain, but no joint pain, swelling or skin rash. Pt has no headache, no photophobia, phonophobia, no loss of bowel bladder continence. per the , she had no slurring of speech, no weakness in one side of the body, no crooked face. Did however had blank stare. The patient in the ER was noted to be febrile, tmax of 101.9, she has leucocytosis, X ray chest was neg, chemistry neg, her ua neg, Ct head showed low ruth ann sinusitis, mild hydrocephalus. LP done shows 2 rbc, 4 neutorohils, normal protein and normal glucose. Given no other e/o for infection and behavorial change found, she was started on meningitis protocol, IV antibiotics given and admitted to the hospital for further management The patient by the time of my evaluation was back to her baseline status, complained of some fatigue, but no other complaints. jul 30 patient seen and examined, no acute overnight events. Hemodynamically stable labs reviewed. CSF culture is still negative. WBC count slightly worse today, could be due to use of dexamethasone yesterday. Pro-calcitonin is normal CT scan reviewed, patient has bibasilar atelectasis, there is a questionable mass or mucous plug in the right middle bronchus with resulting atelectasis of the right middle lobe. Patient may have a tumor or just a mucous plug, advised to consider pulmonary consult for bronchoscopy. We will discuss with pulmonary on Tuesday if available or can be scheduled for bronchoscopy as an outpatient. Patient did not have any further confusion spells, MRI done with and without contrast results pending. Jul 31 Pt seen examined, no acute overnight events CT chest results reviewed with the family. Plan for bronchoscopy as an outpatient MRI of the head is negative No events on telemetry DC telemetry Awaiting cultures to be negative plan to discharge home if cultures are negative from the CSF Pertinent ROS: Denies headache, dizziness Denies chest pain, palpitations Denies cough or shortness of breath Denies abdominal pain, nausea or vomiting. - Constitutional Vitals: Vital Signs Temp Pulse Resp BP Pulse Ox 98.5 F 62 16 121/72 95 07/31/17 07:00 07/31/17 00:01 07/31/17 07:00 07/31/17 07:00 07/31/17 07:30 Period Temp Pulse Resp BP Sys/Uriostegui Pulse Ox Last 24 Hr 98.5 F-99.0 F 62-81 16-18 97-124/56-72 92-99 Intake and Output 07/30/17 07/31/17 07/31/17 21:59 05:59 13:59 Intake Total 1070 / 1070 950 / 950 290 / 290 Output Total 900 / 900 750 / 750 Balance 170 / 170 200 / 200 289 / 289 Weight 191 lb 6.4 oz Intake & Output: Intake & Output 07/30/17 07/31/17 07/31/17 21:59 05:59 13:59 Intake Total 1070 / 1070 950 / 950 290 / 290 Output Total 900 / 900 750 / 750 Balance 170 / 170 200 / 200 289 / 289 Weight 191 lb 6.4 oz Intake: IV 350 / 350 850 / 850 250 / 250 Zovirax 800 mg In Sodium 150 / 150 150 / 150 150 / 150 Chloride 0.9% 150 ml @ 100 mls/ hr IV Q8H [facility] Rx#:[id number] Ampicillin 2 gm In Sodium 200 / 200 200 / 200 100 / 100 Chloride 0.9% 100 ml @ 100 mls/ hr IV Q4H [facility] Rx#:[id number] Vancomycin 1,500 mg In Sodium 500 / 500 Chloride 0.9% 500 ml @ 333.3 mls/hr IV Q12H [facility] Rx#: [id number] Oral 720 / 720 100 / 100 40 / 40 Output: Void Amount 900 / 900 750 / 750 Urine/Stool Mix Other: Meal Dinner Breakfast Percent of Meal Consumed 100% 100% Feeding Ability Independent Independent Stool Size Large Stool Color Brown Stool Consistency Soft # Voids 2 1 Exam: Constitutional; Afebrile, cooperative, alert, not in distress. Eyes- No icterus, , No periorbital swelling Ears- Ext ear normal, hearing normal to conversation. Neck- Midline trachea, supple Respiratory system: Air Entry equal on both sides, No crackles or wheezing, no rhonchi. CVS- Rate rhythm regular, S1,S2 heard, no gallop, no rub. Abdomen- Soft nontender abdomen, no organomegaly, no tenderness, no guarding or rigidity, [employer] SECUR[employer] CONSULTANT- AOOx3, moving all extremities, no gross focal deficit noted. Medical - PN: Obj Da - Labs CBC & Chem 7: 07/31/17 04:05 07/31/17 04:05 Labs: Abnormal Lab Results 07/31/17 07/31/17 07/31/17 08:05 04:05 04:05 WBC RBC 3.23 L Hgb 9.8 L Hct 28.8 L Gran % Lymph % (Auto) Gran # Lymph # (Auto) 1.4 L Chloride 109 H BUN 24 H Glucose Calcium 8.5 L Total Protein 5.8 L Cholesterol LDL Cholesterol, Calc Non-HDL Cholesterol CSF RBC Vancomycin Trough 23.0 H* 07/30/17 07/30/17 07/29/17 03:30 03:30 17:35 WBC 13.2 H RBC 3.71 L Hgb 11.4 L Hct 33.2 L Gran % 90.3 H Lymph % (Auto) 4.3 L Gran # 11.9 H Lymph # (Auto) 0.6 L Chloride BUN Glucose 147 H Calcium Total Protein Cholesterol 204 H LDL Cholesterol, Calc 149 H Non-HDL Cholesterol 158 H CSF RBC 2 H Vancomycin Trough 07/29/17 15:10 WBC 12.9 H RBC 3.97 L Hgb Hct 34.8 L Gran % 85.9 H Lymph % (Auto) 7.5 L Gran # 11.1 H Lymph # (Auto) 1.0 L Chloride BUN Glucose Calcium Total Protein Cholesterol LDL Cholesterol, Calc Non-HDL Cholesterol CSF RBC Vancomycin Trough Meds: Medications Acetaminophen (Tylenol) 650 mg PO Q6HP PRN PRN Reason: PAIN/FEVER > 101 Bisoprolol Fumarate (Zebeta) 5 mg PO QDAY [facility] Ceftriaxone Sodium (Rocephin) 2 gm IV Q12H [facility] Diphenhydramine HCl (Benadryl) 25 mg IV Q4HP PRN PRN Reason: Allergic Symptoms Guaifenesin (Robitussin Dm) 10 ml PO Q4HP PRN PRN Reason: Cough Heparin Sodium (Porcine) (Heparin) 5,000 unit SQ Q12 [facility] Acyclovir Sodium 800 mg/ (Sodium Chloride) 150 mls @ 100 mls/hr IV Q8H [facility] Ampicillin Sodium 2 gm/ Sodium (Chloride) 100 mls @ 100 mls/hr IV Q4H [facility] Ibuprofen (Motrin) 400 mg PO Q6HP PRN PRN Reason: Pain Lisinopril (Zestril) 20 mg PO QDAY [facility] Loperamide HCl (Imodium) 2 mg PO PRN PRN PRN Reason: Diarrhea Magnesium Hydroxide (Milk Of Magnesia) 30 ml PO DAILYP PRN PRN Reason: Constipation Naloxone HCl (Narcan) 0.1 mg IV Q2MIN PRN PRN Reason: Opiate Reversal Ondansetron HCl (Zofran) 4 mg IV Q4HP PRN PRN Reason: Nausea And Vomiting Sodium Chloride (Saline Flush) 10 ml IV Q8 [facility] Vancomycin HCl (Vancomycin Per Pharmacy) 1 order IV [facility] [place] Medical - PN: A/P - Time Spent With Patient Total time spent is greater than 50% in coordination of care (as documented) at patient's floor/unit and/or counseling patient: - Narrative A/P Narrative: A/P Altered Mental status/ meningitis : confusion related to fever, no clear evidence of myocardial infarct on MRI, no other lesions noted. No events on telemetry Right bronchial lesion: noted on CT Scan, incentive spirometery, plan for bronchoscopy, likely as outpatient. Cough: CT shows mucous plug, atlectasis, possible bronhial lesion. Left lingular infiltrate, on broad spectrum abx. for meningitis coverage. HTN: resume home bp medications Full code Regular diet DVT hep sq Medical - PN: Qual - VTE Deep Vein Thrombosis/Pulmonary Embolism Present on Admission: No
[2017-07-31] MEDS ORDERED: 0.9 % SODIUM CHLORIDE 10 ML SYRINGE IV SCH (14:00)
[2017-07-31] MEDS ORDERED: ACYCLOVIR SODIUM 800 MG in 0.9 % SODIUM CHLORIDE 150 ML IV SCH (14:00)
--- NOTE | 2017-07-31 17:31 | Discharge Summary ---
Medical - DS: Prov Patient information: Note initiated : 07/31/17 at 5:26 pm Service Date, if different from initiated Date: [] Patient: Queenie Marrero 71 y/o F admitted on 07/29/17 for Alterered Mental Status. Chief Complaint: [] Date of admission: 07/29/17 20:16 Discharge date: 07/31/17 Primary care physician: Aditya Rand Admitting clinician: Arjun Paredes Discharging clinician: Arjun Paredes Medical - DS: Meds - Discharge Medications Prescriptions: Aspirin [Aspirin EC] 81 mg PO DAILY #30 tablet. Azithromycin 250 mg PO DAILY #6 tab Active and Home Medications: Home Medications multivitamin,Ca,mineral-folic acid-herbal no.157 400 mcg tablet 1 tab PO QDAY tab 12/26/14 [History Confirmed 07/29/17 Last Taken Unknown] Loperamide HCl [Anti-Diarrheal] 2 mg PO QIDP PRN #20 tab 04/26/16 [Rx Confirmed 07/29/17 Last Taken Unknown] bisoprolol fumarate 5 mg tablet 5 mg PO QDAY #90 tab 12/15/16 [Rx Confirmed Last Taken Unknown] lisinopril 20 mg tablet 20 mg PO QDAY #90 tab 01/17/17 [Rx Confirmed 07/29/17 Last Taken Unknown] benzonatate 200 mg capsule 200 mg PO TID PRN #60 cap 05/17/17 [Rx Confirmed Last Taken Unknown] Medical - DS: Hosp Hospital course: Ms. Marrero is a 71 year old Female with h/o HTN, presented to the ER for Altered mental status. History provided by the patients . The patient was her usual self upto 2. 30 pm on the day of admission, The patient and her were at [employer], The patient noticed that she was blankly staring in space. He asked if she was ok, and she nodded, but she was clearly not her self, she had non specific movements of both hands, ongoing. At the time of leaving the restaurant, she forgot to take her coat and purse, which is unlike her. She had some difficulty in getting in the car, after going home too, she was not her self, she was unable to get out of the car , forgot to remove seat belt and trying to get out without understanding which side to get out from. The patient was therefore brought to the ER for further evaluation. The patient has no recollection of these events. The patient notes she does not remember any headache, visual c hanges, changes in hearing, or difficulty in swallowing, she has cough, for 3 months, she nicolette sob, chest pain, shortness of breath, GI symptms (diarrhea present intermittently with beans), no urinary complaints, has chr back pain, but no joint pain, swelling or skin rash. Pt has no headache, no photophobia, phonophobia, no loss of bowel bladder continence. per the , she had no slurring of speech, no weakness in one side of the body, no crooked face. Did however had blank stare. The patient in the ER was noted to be febrile, tmax of 101.9, she has leucocytosis, X ray chest was neg, chemistry neg, her ua neg, Ct head showed low ruth ann sinusitis, mild hydrocephalus. LP done shows 2 rbc, 4 neutorohils, normal protein and normal glucose. Given no other e/o for infection and behavorial change found, she was started on meningitis protocol, IV antibiotics given and admitted to the hospital for further management meningitis-patient's CSF is unremarkable, no evidence of meningitis clinically not on the labs, microalbumin is negative at 48 hours. Discontinue antibiotics , I do not feel meningitis express the patient's symptoms Pneumonia-CT chest done showed mild infiltrate in the left lingular region. She was adequately covered with antibiotics for her meningitis, I will discharge her on azithromycin. Bronchial mass-mucous plug.-The patient's CT scan showed right middle lobe bronchial mass versus a mucous plug causing right middle zone atelectasis. This needs to be further evaluated by a bronchoscopy. 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 This has been thoroughly reviewed with the patient and her . The patient does have a history of cough that has been going on for the last few weeks to months. The patient has no history of smoking. Altered mental status-post short of TIA would completely explain the patient's symptoms however at this point in timeWILL start the patient on a low-dose of aspirin. It seems she is allergic to all statins including Zetia, he patient had a negative CT head, questionable hydrocephalus, MRI of the head was also negative this was done with and without contrast, only showed mild sinusitis and mastoiditis. Should be coated with antibiotics prescribed The rest of the stay in the hospital was uneventful, the patient will be discharged home, she is alert oriented 3 moving all extremities tolerating by mouth diet well and in good spirits at the time of discharge Discharge diagnosis: AMS, PNA, Bronchial mass - Time Spent with Patient Total time spent providing and/or coordinating discharge services: Greater than 30 minutes Medical - DS: Exam - Constitutional Vitals: Vital Signs Temp Pulse Resp BP BP Pulse Ox 07/31/17 12:00 97 F 18 136/84 95 07/31/17 07:30 95 07/31/17 07:00 98.5 F 16 121/72 97 07/31/17 04:00 98.8 F 18 113/66 94 07/31/17 00:01 98.8 F 62 18 97/59 92 07/30/17 20:18 99.0 F H 80 18 124/66 99 Intake and Output 07/31/17 07/31/17 07/31/17 05:59 13:59 21:59 Intake Total 950 / 950 390 / 390 650 / 650 Output Total 750 / 750 / 1 650 / 650 Balance 200 / 200 389 / 389 0 / 0 Intake: IV 850 / 850 350 / 350 250 / 250 Zovirax 800 mg In Sodium 150 / 150 150 / 150 150 / 150 Chloride 0.9% 150 ml @ 100 mls/ hr IV Q8H JEANETTE Rx#:[id number] Ampicillin 2 gm In Sodium 200 / 200 200 / 200 100 / 100 Chloride 0.9% 100 ml @ 100 mls/ hr IV Q4H JEANETTE Rx#:[id number] Vancomycin 1,500 mg In Sodium 500 / 500 Chloride 0.9% 500 ml @ 333.3 mls/hr IV Q12H JEANETTE Rx#: [id number] Oral 100 / 100 40 / 40 400 / 400 Output: Void Amount 750 / 750 650 / 650 Urine/Stool Mix Other: Meal Lunch Percent of Meal Consumed 90 Feeding Ability Independent Stool Size Large Stool Color Brown Stool Consistency Soft # Voids 1 # Bowel Movements 2 Additional comments: Constitutional; Afebrile, cooperative, alert, not in distress. Eyes- No icterus, , No periorbital swelling Ears- Ext ear normal, hearing normal to conversation. Neck- Midline trachea, supple Respiratory system: Air Entry equal on both sides, No crackles or wheezing, no rhonchi. CVS- Rate rhythm regular, S1,S2 heard, no gallop, no rub. Abdomen- Soft nontender abdomen, no organomegaly, no tenderness, no guarding or rigidity, ENGRAVER SIGNATURE- AOOx3, moving all extremities, no gross focal deficit noted. Medical - DS: Data Labs on day of discharge: Labs from last 24 hours 07/31/17 07/31/17 07/31/17 08:05 04:05 04:05 WBC 9.0 RBC 3.23 L Hgb 9.8 L Hct 28.8 L MCV 89.2 MCH 30.4 MCHC 34.1 RDW 13.5 Plt Count 198 MPV 8.3 Gran % 75.2 Lymph % (Auto) 15.6 Norman % (Auto) 5.6 Eos % (Auto) 3.3 Baso % (Auto) 0.3 Gran # 6.8 Lymph # (Auto) 1.4 L Norman # (Auto) 0.5 Eos # (Auto) 0.3 Baso # (Auto) 0 Sodium 143 Potassium 3.9 Chloride 109 H Carbon Dioxide 23 Anion Gap 11.0 BUN 24 H Creatinine 1.0 GFR Calculation 57 Glucose 96 Uric Acid 4.3 Calcium 8.5 L Phosphorus 2.7 Magnesium 2.0 Total Bilirubin 0.2 Direct Bilirubin < 0.2 GGT 11 AST 20 ALT 17 Alkaline Phosphatase 56 Lactate Dehydrogenase 170 Total Protein 5.8 L Albumin 3.6 Globulin 2.2 Albumin/Globulin Ratio 1.6 Triglycerides 70 Vancomycin Trough 23.0 H* Preliminary micro results at discharge 07/29/17 16:10 Blood Culture - Preliminary Blood 07/29/17 16:20 Blood Culture - Preliminary Blood Medical - DS: A/P - Patient/Caregiver Discharge Instructions Activity: increase activity as tolerated Diet: Cardiac Additional Instructions: you will need to have a follow-up with the lung doctor, Dr. CARRANZA for further evaluation of the mass and the bronchus. likely will need a bronchoscopy. take antibiotics for another 5 days as prescribed Go to the emergency room if you have any fever, chills, shortness of breath chest pain, or any other acute concerning symptom Start taking a baby aspirin with food on a daily basis. Avoid using NSAIDs while on aspirin therapy. - Follow up Plan Follow up with: Aditya Rand PA-C [Primary Care Provider] - Disposition: Home, Self-Care Prognosis: Fair Rehab Potential: Fair I certify that the patient requires SNF services: No Overall status at discharge: patient is back to baseline Medical - DS: Qual - VTE Deep Vein Thrombosis/Pulmonary Embolism Present on Admission: No
[2017-07-31] MEDS ORDERED: cefTRIAXone 2 GM VIAL IV SCH (21:00)
[2017-07-31] MEDS ORDERED: HEPARIN 5,000 UNIT/ML VIAL SQ SCH (21:00)
[2017-08-01] MEDS ORDERED: LISINOPRIL 20 MG TABLET PO SCH (09:00)
[2017-08-01] MEDS ORDERED: BISOPROLOL 5 MG TABLET PO SCH (09:00)
[2017-08-05 08:06] LABS: LCM IGG <1:1; LCM IGM <1:1; Measles IGG AB CSF <1:64; Measles IGM AB CSF <1:1
== END 2017-07-31 18:05 | disposition home or self-care (01) | DRG 947 ==
LOC: ED 15:10 → ICU 20:16 → MEDSUR 07-31 11:09
PROVIDERS: ADMIT Internal Medicine; ATTEND Internal Medicine

== ENCOUNTER 2019-06-16 22:25 | Inpatient (IN) ==
[2019-06-16] MEDS ORDERED: ACETAMINOPHEN 325 MG TABLET PO ONE (22:54)
[2019-06-16] MEDS ORDERED: IBUPROFEN 600 MG TABLET PO ONE (22:54)
[2019-06-16] MEDS ORDERED: LACTATED RINGERS 1,000 ML IV ONE (22:54)
--- NOTE | 2019-06-16 23:00 | Emergency Department Note ---
Weakness HPI - General Chief complaint: Weakness Stated complaint: Sinus infection Time Seen by Provider: 06/16/19 22:52 Source: family Mode of arrival: ambulatory Limitations: altered mental status - History of Present Illness HPI Narrative: Patient brought in by the . The. When the returned home, she was running a fever over 102. She's not feeling well. She was a little bit dizzy, a slight gait unsteadiness but no one-sided focal weakness. The. There is no history of any facial droop. There is no history of any one-sided numb ness or weakness, in general she was a little bit weak and unsteady on her feet, apparently has been on antibiotics off and on for over 6 months with a history of recurrent sinus infections. The. Status post sinus surgery earlier last year. She ended up with staph infection in the sinuses and she has been off of antibiotics only briefly. She still blowing mucus and discharge from the nose up. She also has a cough. Just generally not feeling well in the last 24 hours. She denies nausea, vomiting, she's had diarrhea off and on but not today. No chest pain, she is not hypoxic. She does not feel short of breath. She has a mild headache. MD Complaint: generalized weakness - Related Data Home Medications Medication Instructions Recorded Confirmed Radha baltazar,ppv-RX-cffohp no.157 400 mcg 1 tab PO QDAY tab 12/26/14 06/16/19 tablet Cholecalciferol (Vitamin D3) 5,000 unit PO DAILY 10/12/17 06/16/19 [Vitamin D3] Melatonin 10 mg PO HS 10/12/17 06/16/19 aspirin 81 mg tablet,delayed 81 mg PO QDAY 04/25/18 06/16/19 release omega-3 fatty acids 1,000 mg 1,000 mg PO QDAY 04/25/18 06/16/19 capsule cetirizine 10 mg tablet 5 mg PO QDAY PRN 12/04/18 06/16/19 lactobacillus combination no.9 4 4,000 mmu cells PO QDAY 12/25/18 06/16/19 billion cell capsule fluticasone propionate 50 2 spray INTRANASAL BID 01/24/19 06/16/19 mcg/actuation nasal spray,suspension food enzymes PO 02/06/19 06/16/19 mecobalamin (vitamin B12) 5,000 mcg PO 02/06/19 06/16/19 mcg disintegrating tablet multivitamin with minerals 1 tab PO QDAY tab 02/06/19 06/16/19 omeprazole 20 mg capsule,delayed 20 mg PO QDAY 03/14/19 06/16/19 release Previous Rx's Medication Instructions Recorded levothyroxine 75 mcg tablet 75 mcg PO QDAY #90 tab 11/20/18 lisinopril 5 mg tablet 5 mg PO QDAY #90 tab 01/08/19 albuterol sulfate 90 mcg/actuation 2 puff INHALATION Q6H #8.5 g 05/15/19 aerosol inhaler celecoxib 200 mg capsule 200 mg PO QDAY #30 cap 05/23/19 nebulizer accessories See Rx Instructions .ROUTE 06/01/19 .MEDSUPPLY #1 each nebulizer machine #1 ea 06/01/19 sulfamethoxazole 800 1 tab PO BID #10 tab 06/01/19 mg-trimethoprim 160 mg tablet albuterol sulfate See Rx Instructions .ROUTE 06/12/19 .COMPLEX #75 milliliter doxycycline hyclate 100 mg capsule 100 mg PO BID 5 Days #10 cap 06/16/19 Allergies Allergy/AdvReac Type Severity Reaction Status Date / Time gluten Allergy Severe Other Verified 06/16/19 14:17 Ysaheua-Xux-Zxl Reductase Allergy Unknown Unknown Verified 06/16/19 14:17 Inhibitor ezetimibe [Zetia] AdvReac Intermediate Joint Pain Verified 06/16/19 14:17 tramadol AdvReac Intermediate Vomiting Verified 06/16/19 14:17 codeine [CODEINE] AdvReac Mild Nausea/Vomi Verified 06/16/19 14:17 ting vancomycin AdvReac Mild Rash Verified 06/16/19 14:17 metronidazole AdvReac Unknown Unknown Verified 06/16/19 14:17 Review of Systems All systems ED: reviewed and negative except as stated. Constitutional: Reports: fever, chills, weakness, sweats ENT ED: Denies: ear pain, throat pain, hearing loss Cardiovascular: Reports: dyspnea on exertion. Denies: chest pain, palpitations Respiratory: Reports: shortness of breath Gastrointestinal: Reports: diarrhea. Denies: abdominal pain, nausea, vomiting Genitourinary: Denies: dysuria, urgency Musculoskeletal: Denies: back pain Neurological: Reports: headache, weakness, confusion, abnormal gait. 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 Absent: periorbital swelling, periorbital tenderness ENT: Present: normal exam, normal oropharynx, mucous membranes moist, TM's normal bilaterally, nasal tones. Absent: dental caries Neck: Present: normal inspection, full ROM, trachea midline. Absent: tenderness, meningismus, lymphadenopathy, thyromegaly Chest: Present: normal inspection, symmetric chest wall rise. Absent: tenderness, rash, abscess Respiratory: Present: normal lung sounds bilaterally, rales/crackles. Absent: respiratory distress Cardiovascular: Present: regular rate, normal rhythm, normal heart sounds Abdominal: Present: soft, normal bowel sounds. Absent: distention, tenderness Extremities: Present: normal inspection, full ROM. Absent: tenderness, pedal edema Back: Present: normal inspection. Absent: CVA tenderness (R), CVA tenderness (L), vertebral tenderness Neurological: Present: alert, oriented X3, CN II-XII intact. Absent: motor se nsory deficit Psychiatric: Present: normal affect Skin: Present: warm, dry, normal color Course - Reevaluation(s) Reevaluation #1: Patient was started on IV fluids, we also gave her Tylenol and ibuprofen and. Head CT was ordered. Also facial CT, which is showing a lot of sinusitis. The. Urinalysis was negative. The. Chest x-ray also negative. Abdominal exam does not suggest suggesting an acute abdomen or surgical abdomen. At this point, her white blood cell count was elevated, she also had a left shift. Her mentation improved with Tylenol and Motrin up. IV fluids, started on Zosyn as she is allergic to metronidazole. Final impression is complicated sinusitis associated with sepsis criteria. Plan his hospital admission, discussed with our hospitalist Vital Signs Temperature 101.7 F H 06/16/19 22:29 Pulse Rate 119 H 06/16/19 22:29 Respiratory Rate 16 06/16/19 22:29 Blood Pressure 157/88 06/16/19 22:29 Pulse Oximetry (%) 95 06/16/19 22:29 Temperature 99.2 F H 06/17/19 00:08 Pulse Rate 99 H 06/17/19 02:30 Respiratory Rate 16 06/16/19 22:29 Blood Pressure 110/65 06/17/19 02:30 Pulse Oximetry (%) 91 06/17/19 02:30 Weakness - [facility] Narrative Medical decision making narrative: Impression is complicated sinusitis - Lab Data Lab results reviewed: Yes I reviewed the patient's lab results. Result diagrams: 06/16/19 23:00 06/16/19 23:00 Lab Results 06/16/19 06/16/19 06/16/19 Range/Units 23:00 23:00 23:00 WBC 18.2 H (4.50-11.00) K/mcL RBC 4.00 (3.59-5.38) M/mcL Hgb 12.1 (11.2-15.7) g/dL Hct 36.3 (34.1-44.9) % MCV 90.8 (80.0-100.0) fL MCH 30.3 (26.0-34.0) pg MCHC 33.3 (31.0-36.0) g/dL RDW 12.1 (11.5-14.5) % Plt Count 304 (140-440) K/mcL MPV 9.2 (7.4-10.4) fL Gran % 90.5 H (38.0-78.0) % Lymph % (Auto) 3.7 L (15.5-49.0) % Jenkins % (Auto) 5.3 (1.0-12.0) % Eos % (Auto) 0.3 (0.0-7.0) % Baso % (Auto) 0.2 (0.0-2.0) % Gran # 16.46 H (1.80-8.00) K/mcL Lymph # (Auto) 0.68 L (1.50-4.80) K/mcL Jenkins # (Auto) 0.96 H (0.10-0.90) K/mcL Eos # (Auto) 0.05 (0.00-0.70) K/mcL Baso # (Auto) 0.04 (0.00-0.30) K/mcL ESR 43 H (0-20) mm/hr VBG Lactic Acid 0.9 (0.5-2.0) mmol/L Sodium 135 (133-145) mmol/L Potassium 3.9 (3.3-5.1) mmol/L Chloride 98 (96-108) mmol/L Carbon Dioxide 22 (22-30) mmol/L Anion Gap 15.0 (8-16) BUN 10 (8-23) mg/dl Creatinine 0.9 (0.6-1.1) mg/dl GFR Calculation 63 Glucose 132 H (70-105) mg/dL Calcium 9.6 (8.6-10.4) mg/dl Total Bilirubin 0.4 (0.0-1.0) mg/dL AST 22 (0-37) U/l ALT 19 (0-40) U/l Alkaline Phosphatase 90 (39-117) U/L C-Reactive Protein 1.5 H (0.0-0.8) mg/dl Total Protein 7.8 (5.9-8.4) gm/dL Albumin 4.3 (3.2-5.2) gm/dL Globulin 3.5 (2.2-3.7) gm/dL Albumin/Globulin Ratio 1.2 (1.0-2.3) Urine Color Urine Appearance Urine pH (5.0-9.0) Ur Specific [place] (1.000-1.035) Urine Protein (NEG) mg/dL Urine Glucose (UA) (NEG) mg/dL Urine Ketones (NEG) mg/dL Urine Occult Blood (<0.03) mg/dL Urine Nitrate (NEG) Urine Bilirubin (NEG) mg/dL Urine Urobilinogen (NEG) mg/dL Ur Leukocyte Esterase (NEG) /uL Ur Culture Indicated? 06/16/19 Range/Units 23:50 WBC (4.50-11.00) K/mcL RBC (3.59-5.38) M/mcL Hgb (11.2-15.7) g/dL Hct (34.1-44.9) % MCV (80.0-100.0) fL MCH (26.0-34.0) pg MCHC (31.0-36.0) g/dL RDW (11.5-14.5) % Plt Count (140-440) K/mcL MPV (7.4-10.4) fL Gran % (38.0-78.0) % Lymph % (Auto) (15.5-49.0) % Jenkins % (Auto) (1.0-12.0) % Eos % (Auto) (0.0-7.0) % Baso % (Auto) (0.0-2.0) % Gran # (1.80-8.00) K/mcL Lymph # (Auto) (1.50-4.80) K/mcL Jenkins # (Auto) (0.10-0.90) K/mcL Eos # (Auto) (0.00-0.70) K/mcL Baso # (Auto) (0.00-0.30) K/mcL ESR (0-20) mm/hr VBG Lactic Acid (0.5-2.0) mmol/L Sodium (133-145) mmol/L Potassium (3.3-5.1) mmol/L Chloride (96-108) mmol/L Carbon Dioxide (22-30) mmol/L Anion Gap (8-16) BUN (8-23) mg/dl Creatinine (0.6-1.1) mg/dl GFR Calculation Glucose (70-105) mg/dL Calcium (8.6-10.4) mg/dl Total Bilirubin (0.0-1.0) mg/dL AST (0-37) U/l ALT (0-40) U/l Alkaline Phosphatase (39-117) U/L C-Reactive Protein (0.0-0.8) mg/dl Total Protein (5.9-8.4) gm/dL Albumin (3.2-5.2) gm/dL Globulin (2.2-3.7) gm/dL Albumin/Globulin Ratio (1.0-2.3) Urine Color Yellow Urine Appearance Clear Urine pH 7.0 (5.0-9.0) Ur Specific [place] 1.016 (1.000-1.035) Urine Protein Neg (NEG) mg/dL Urine Glucose (UA) Negative (NEG) mg/dL Urine Ketones Neg (NEG) mg/dL Urine Occult Blood Neg (<0.03) mg/dL Urine Nitrate Neg (NEG) Urine Bilirubin Neg (NEG) mg/dL Urine Urobilinogen Neg (NEG) mg/dL Ur Leukocyte Esterase Neg (NEG) /uL Ur Culture Indicated? No - Radiology Data Radiology results reviewed: Yes I reviewed the patient's radiology results. Disposition Pt seen by INTRAVENOUS THERAPY NURSE/PA only: No Clinical Impression: Sinus abscess, Altered mental status Disposition: Xfer As Inpt ([facility]) Condition: Fair Referrals: Aditya Rand PA-C [Primary Care Provider] -
[2019-06-17 00:08] LABS: Basophils # (Auto) 0.04 K/mcL (0.00-0.30); Basophils % (Auto) 0.2 % (0.0-2.0); Eosinophils # (Auto) 0.05 K/mcL (0.00-0.70); Eosinophils % (Auto) 0.3 % (0.0-7.0); Granulocytes % (Auto) 90.5 % (38.0-78.0); Hematocrit 36.3 % (34.1-44.9); Hemoglobin 12.1 g/dL (11.2-15.7); Lymphocytes # (Auto) 0.68 K/mcL (1.50-4.80); Lymphocytes % (Auto) 3.7 % (15.5-49.0); Mean Cell Volume 90.8 fL (80.0-100.0); Mean Corpuscular HGB Conc 33.3 g/dL (31.0-36.0); Mean Platelet Volume 9.2 fL (7.4-10.4); Monocytes # (Auto) 0.96 K/mcL (0.10-0.90); Monocytes % (Auto) 5.3 % (1.0-12.0); Platelet Count 304 K/mcL (140-440); Red Cell Distribution Width 12.1 % (11.5-14.5); WBC 18.2 K/mcL (4.50-11.00)
[2019-06-17 00:27] LABS: ALT/SGPT 19 U/l (0-40); AST/SGOT 22 U/l (0-37); Albumin 4.3 gm/dL (3.2-5.2); Albumin/Globulin Ratio 1.2 (1.0-2.3); Alkaline Phosphatase 90 U/L (39-117); Bilirubin,Total 0.4 mg/dL (0.0-1.0); Blood Urea Nitrogen 10 mg/dl (8-23); C-Reactive Protein 1.5 mg/dl (0.0-0.8); Calcium 9.6 mg/dl (8.6-10.4); Carbon Dioxide 22 mmol/L (22-30); Chloride 98 mmol/L (96-108); Globulin 3.5 gm/dL (2.2-3.7); Glomerular Filtration Rate 63; Glucose 132 mg/dL (70-105)
[2019-06-17] MEDS ORDERED: PIPERACILLIN SODIUM/TAZOBACTAM 3.375 GM in DEXTROSE 5% IN WATER 50 ML IV ONE (00:46)
[2019-06-17 00:54] LABS: Erythrocyte Sedimentation Rate 43 mm/hr (0-20)
[2019-06-17 01:02] LABS: Appearance,Urine CLEAR; Bilirubin,Urine NEG (NEG); Color,Urine YELLOW; Culture Indicated,Urine NO; Glucose,Urine (UA) NEGATIVE (NEG); Ketones,Urine NEG (NEG); Leukocyte Esterase,Urine NEG /uL (NEG); Nitrate,Urine NEG (NEG); Protein,Urine NEG (NEG); Specific Gravity,Urine 1.016 (1.000-1.035); Urine Blood NEG mg/dL (<0.03); Urobilinogen,Urine NEG (NEG)
[2019-06-17] MEDS ORDERED: ACETAMINOPHEN 325 MG TABLET PO PRN ×2 (02:44→09:09)
[2019-06-17] MEDS ORDERED: ONDANSETRON 4 MG/2 ML VIAL IV PRN ×2 (02:44→09:09)
[2019-06-17] MEDS ORDERED: PIPERACILLIN SODIUM/TAZOBACTAM 3.375 GM in DEXTROSE 5% IN WATER 50 ML IV SCH (03:00)
[2019-06-17] MEDS ORDERED: CLINDAMYCIN 600 MG/4 ML VIAL ONE (03:38)
[2019-06-17] MEDS: LACTATED RINGERS 1,000 ML IV SCH ×2 (03:56→14:50)
[2019-06-17] MEDS: CLINDAMYCIN 600 MG in DEXTROSE 5% IN WATER 50 ML IV SCH ×2 (04:18→10:06)
[2019-06-17] MEDS: guaiFENesin 600 MG TAB.SR.12H PO SCH ×3 (04:18→20:45)
[2019-06-17] MEDS ORDERED: 0.9 % SODIUM CHLORIDE 1,000 ML IV SCH (09:15)
--- NOTE | 2019-06-17 09:35 | Internal Med History&Physical ---
Medical - H&P: HPI Patient information: Note initiated : 06/17/19 at 9:33 am Service Date, if different from initiated Date: [] Patient: Queenie Marrero 73 y/o F admitted on 06/17/19 for Sinus infection. Chief Complaint: [] History of present illness: 73-year-old female with a history of chronic sinusitis, chronic obstructive airway disease, probable GERD and acid reflux induced airway disease, status post sinus surgery, was brought to the ER because of fever and intermittent confusion. Patient was having chronic sinusitis and has been seen by infectious disease and patient was recently on doxycycline 100 twice daily based on the culture report. For the last 24-hour patient was having fever chills worsening cough with a yellow sinus drainage. Patient also reported having previous episodes of pneumonia but no chest pain no palpitations no shortness of breath. She is having cough which is nonproductive. She also has significant postnasal drip. She also reported worsening GERD symptoms recently. She denies any abdominal symptoms no diarrhea no constipation. She reported history of C. difficile PCR positive in the past. Her sinus symptoms started following a sinus surgery and she had a nasal culture done which is positive for MSSA and she was on doxycycline multiple times without much improvement according to the patient. Her viral panel was negative. She also had a bronchial lavage and CSF study which were all negative. She was seen by pulmonology and reported having chronic obstructive lung disease which improved with the Advair and albuterol. Patient's intermittent confusion improved by the time she was evaluated in the ER. She continued having fever and tachycardia no hypotension no lactic acidosis no tachypnea chest x-ray was unremarkable for any pneumonia. She underwent a sinus CT which showed worsening sinusitis of the maxillary more on the left side. She also has sinus tenderness on examination. - Constitutional Constitutional: Present: chills, fatigue, fever(s), weakness. Absent: headache(s), snoring, stops breathing during sleep - EENT Eyes: Absent: blind spots, blurry vision, change in vision, decreased night vision, diplopia, discharge, loss of peripheral vision, loss of vision Ears: Present: as per HPI. Absent: ear discharge, ear pain, tinnitus Nose, mouth and throat: Present: as per HPI - Cardiovascular Cardiovascular: Present: lightheadedness. Absent: chest pain, chest pain at rest, chest pain with activity, claudication, diaphoresis, dyspnea, dyspnea on exertion, edema, irregular heart rhythm, radiating jaw, neck or arm pain, leg edema, leg ulcers - Respiratory Respiratory: Present: cough, chest congestion. Absent: dyspnea, hemoptysis, dyspnea on exertion, wheezing, pain on inspirtation, excessive phlegm production - Gastrointestinal Gastrointestinal: Absent: abdominal pain, belching, bloating, constipation, diarrhea - Genitourinary Genitourinary: Absent: difficulty voiding, dyspareunia, dysuria, flank pain - Musculoskeletal Musculoskeletal: Absent: abnormal gait, arthralgias - Neurological Neurological: Present: confusion. Absent: abnormal hearing, abnormal movements, abnormal speech - Psychiatric Psychiatric: Absent: anxiety, depression - Endocrine Endocrine: Present: fatigue. Absent: cold intolerance, deeping of the voice, excessive sweating - Hematologic/Lymphatic Hematologic/Lymphatic: Absent: easy bleeding, easy bruising, lymphadenopathy Medical - H&P: PMH Medical history: Medical History (Last Reviewed 06/16/19 @ 14:21 by Vida Dave PA-C) Chronic diarrhea (Resolved) Back pain (Acute) Gastroenteritis (Resolved) Pneumonia (Resolved) Pertussis (Resolved) Osteoarthritis (Chronic) Hypertension, essential (Chronic) Hyperlipidemia (Chronic) Hypercholesterolemia (Chronic) Chronic cough (Chronic) Arthritis (Chronic) Allergic rhinitis (Chronic) History of Clostridium difficile (Resolved) Frequent sinus infections (Chronic) Right knee meniscal tear (Resolved) Surgical history: Past Surgical History (Last Reviewed 06/16/19 @ 14:21 by Vida Dave PA-C) History of esophagogastroduodenoscopy (Chronic 09/29/17) H/O section (Resolved) H/O foot surgery (Resolved) History of arthroscopic knee surgery (Resolved) History of carpal tunnel release (Resolved) History of thumb surgery (Resolved) Family history: reviewed and not pertinent Social history: Social History (Last Reviewed 06/16/19 @ 14:21 by Vida Dave PA-C) No Social History Section defined Smoking status: Never smoker Drug use: none Alcohol use: none Medical - H&P: Meds Home Medications Medication Instructions Recorded Confirmed Type Cholecalciferol (Vitamin D3) 5,000 unit PO DAILY 10/12/17 06/17/19 History [Vitamin D3] Melatonin 10 mg PO HS 10/12/17 06/17/19 History aspirin 81 mg tablet,delayed 81 mg PO QDAY 04/25/18 06/17/19 History release omega-3 fatty acids 1,000 mg 1,000 mg PO QDAY 04/25/18 06/17/19 History capsule cetirizine 10 mg tablet 10 mg PO QDAY 12/04/18 06/17/19 History lactobacillus combination no.9 4 4,000 mmu cells PO QDAY 12/25/18 06/17/19 History billion cell capsule lisinopril 5 mg tablet 5 mg PO QDAY #90 tab 01/08/19 06/17/19 Rx fluticasone propionate 50 2 spray INTRANASAL BID 01/24/19 06/17/19 History mcg/actuation nasal spray,suspension food enzymes 1 dose PO 02/06/19 06/16/19 History mecobalamin (vitamin B12) 5,000 mcg PO 02/06/19 06/16/19 History mcg disintegrating tablet multivitamin with minerals 1 tab PO QDAY tab 02/06/19 06/16/19 History omeprazole 20 mg capsule,delayed 20 mg PO BID 03/14/19 06/17/19 History release nebulizer accessories See Rx Instructions .ROUTE 06/01/19 06/16/19 Rx .MEDSUPPLY #1 each nebulizer machine #1 ea 06/01/19 06/16/19 Rx albuterol sulfate See Rx Instructions .ROUTE 06/12/19 06/17/19 Rx .COMPLEX #75 milliliter doxycycline hyclate 100 mg capsule 100 mg PO BID 5 Days #10 cap 06/16/19 06/17/19 Rx Celecoxib 200 mg PO HS@1900 06/17/19 06/17/19 History Levothyroxine Sodium 60 mcg PO QDAY 06/17/19 06/17/19 History Allergies Allergy/AdvReac Type Severity Reaction Status Date / Time gluten Allergy Severe Other Verified 06/16/19 14:17 Faysfnl-Sii-Nrd Reductase Allergy Unknown Unknown Verified 06/16/19 14:17 Inhibitor ezetimibe [Zetia] AdvReac Intermediate Joint Pain Verified 06/16/19 14:17 tramadol AdvReac Intermediate Vomiting Verified 06/16/19 14:17 codeine [CODEINE] AdvReac Mild Nausea/Vomi Verified 06/16/19 14:17 ting vancomycin AdvReac Mild Rash Verified 06/16/19 14:17 metronidazole AdvReac Unknown Unknown Verified 06/16/19 14:17 Medical - H&P: Exam - Constitutional Vitals: Temp Pulse Resp BP Pulse Ox 97.9 F 89 18 123/62 97 06/17/19 08:00 06/17/19 08:00 06/17/19 08:00 06/17/19 08:00 06/17/19 08:00 General appearance: moderate distress - Head Head exam: Present: atraumatic, normal inspection Additional comments: She appears to be in distress due to cough No meningeal signs Sinus tenderness bilateral maxillary Posterior pharyngeal erythema - ENT ENT exam: Present: mucous membranes moist, normal external ear exam - Expanded ENT Exam Ear exam: Absent: auricular trauma, external canal tenderness Nose & sinuses exam: Present: inflamed nasal mucosa, nasal discharge, other Mouth exam: Present: moist Throat exam: Present: post pharyngeal erythema - Neck Neck exam: Present: normal inspection. Absent: lymphadenopathy, meningismus, tenderness - Expanded Neck Exam Neck exam: Absent: anterior neck swelling, midline deformity, tenderness - Respiratory Respiratory exam: Present: rales, wheezes Additional comments: Crackles more on the left lower lobe - Expanded Respiratory Exam Location: rales: Left, wheezes: Left, Right - Cardiovascular Cardiovascular exam: Present: tachycardia. Absent: diastolic murmur, JVD, +S3, +S4 - GI/Abdominal GI/Abdominal exam: Present: normal bowel sounds, soft, distended - Extremities Exam Extremities exam: Present: full ROM. Absent: calf tenderness, joint swelling - Neurological Exam Neurological exam: Present: alert, CN II-XII intact, oriented X3, reflexes normal. Absent: motor sensory deficit Additional comments: Unable to check the gait as the patient was in distress - Psychiatric Psychiatric exam: Absent: anxious, depressed - Skin Skin exam: Present: normal color. Absent: cyanosis, erythema, mottled, pallor Medical - H&P: Reslt - Labs CBC & Chem 7: 06/16/19 23:00 06/16/19 23:00 Labs: Short CBC 06/16/19 Range/Units 23:00 WBC 18.2 H (4.50-11.00) K/mcL Hgb 12.1 (11.2-15.7) g/dL Hct 36.3 (34.1-44.9) % Plt Count 304 (140-440) K/mcL BMP 06/16/19 23:00 Sodium 135 Potassium 3.9 Chloride 98 Carbon Dioxide 22 BUN 10 Creatinine 0.9 Glucose 132 H Calcium 9.6 Liver Function 06/16/19 Range/Units 23:00 Total Bilirubin 0.4 (0.0-1.0) mg/dL AST 22 (0-37) U/l ALT 19 (0-40) U/l Alkaline Phosphatase 90 (39-117) U/L Albumin 4.3 (3.2-5.2) gm/dL Urine 06/16/19 Range/Units 23:50 Urine Color Yellow Urine Appearance Clear Urine pH 7.0 (5.0-9.0) Ur Specific [place] 1.016 (1.000-1.035) Urine Protein Neg (NEG) mg/dL Urine Glucose (UA) Negative (NEG) mg/dL Medical - H&P: A/P - Narrative A/P Narrative: Sepsis Probably severe acute on chronic sinusitis History of recurrent sinusitis has been on antibiotics Probable worsening symptoms associated with cough and confusion No features of pneumonia Plan She received 1 L bolus in the ER Continued LR 100 mils per hour She was started on Zosyn and clindamycin in the ER We will discontinue clindamycin as her previous culture showed resistance Her previous cultures were grown MSSA We will order a nasal culture and sputum culture No obvious features of pneumonia for now We will monitor her oxygenation If she is not improving will obtain a CT of her chest without contrast No evidence of meningeal signs, no obvious evidence of meningitis-confusion improved even before starting the antibiotics Blood cultures were done in the ER pending Nose culture ordered Acute encephalopathy probably metabolic due to sepsis Her confusion resolved even before starting antibiotics She is alert oriented x3 Monitor her mentation if she continues to be confused will consider lumbar puncture Chronic obstructive airway disease We will start her on duo nebs every 6 hour and as needed No features of acute exacerbation Monitor oxygenation Essential hypertension Continue lisinopril Hypothyroidism Continue levothyroxine DVT prophylaxis-subcu Lovenox CODE STATUS-full code Expected length of stay-1-2 midnights Medical - H&P: Qual - VTE Deep Vein Thrombosis/Pulmonary Embolism Present on Admission: No
--- NOTE | 2019-06-17 09:39 | XRay Report ---
HISTORY: Fever FINDINGS: There are small parenchymal scars in both lung bases which were seen on a prior chest CT done on 07/29/17. There is no evidence of pneumonia, congestive heart failure, pleural effusion or adenopathy. The heart size is normal. The aorta is mildly tortuous. IMPRESSION: Stable scar tissue in both lung bases and no acute abnormality Interpreted and Authenticated by: Jesus Eaton 06/17/19
--- NOTE | 2019-06-17 09:43 | Cat Scan Report ---
History: Fever, sinus infection, evaluate for abscess TECHNIQUE: The brain was imaged without contrast at 2.5 mm intervals. The radiation exposure was limited using dose reduction technology. FINDINGS: Evaluation of the brain for abscess or encephalitis without contrast is limited. There is no evidence of cerebral edema and no intracranial abscess is detected. Patient does have mild generalized cerebral atrophy with associated mild prominence of the lateral ventricles. There are subtle areas of decreased attenuation in the white matter in the frontal and parietal lobes, consistent with age-related ischemia or degeneration. Similar findings were present on a prior brain MRI done on 07/30/17. There is no hemorrhage and no acute infarct is detected. No abnormal extra-axial fluid collection is present. Calvarium is normal with no bone erosion. The sinuses were evaluated on a separate sinus CT scan. IMPRESSION: Stable age-related degenerative changes in the brain with no acute abnormality Interpreted and Authenticated by: Jesus Eaton 06/17/19
--- NOTE | 2019-06-17 09:46 | Cat Scan Report ---
History: Fever and sinusitis TECHNIQUE: The face was imaged without contrast in axial plane at 2.5 mm intervals. Coronal reformats were created. The radiation exposure was limited using dose reduction technology. FINDINGS: There is a moderately large air-fluid level in the left maxillary sinus with mucosal thickening surrounding the wall of the sinus. Moderate mucosal thickening is present in the right maxillary sinus with a small air-fluid level. Is also moderate bilateral ethmoid sinusitis. Minor bilateral frontal sinusitis is seen with tiny air-fluid levels. Mild mucosal thickening is seen along the seaman of the sphenoid sinuses and there is a tiny air-fluid level in the right side. There is no associated bone erosion. The mastoids are clear. No facial abscess is seen. No abnormality is seen within the orbits. Comparison with the prior CT done on 08/14/18 shows the sinusitis has become worse. IMPRESSION: Moderate pansinusitis with the greatest involvement in the left maxillary and ethmoids Interpreted and Authenticated by: Jesus Eaton 06/17/19
[2019-06-17] MEDS: PIPERACILLIN SODIUM/TAZOBACTAM 3.375 GM in DEXTROSE 5% IN WATER 50 ML IV SCH ×3 (10:29→20:43)
[2019-06-17] MEDS ORDERED: LEVOTHYROXINE 75 MCG TABLET PO SCH (10:45)
[2019-06-17] MEDS: LACTOBACILLUS 1 CAPSULE PO SCH (11:47)
[2019-06-17] MEDS: ASPIRIN 81 MG TAB.CHEW PO SCH (11:47)
[2019-06-17] MEDS: LISINOPRIL 5 MG TABLET PO SCH (11:48)
[2019-06-17] MEDS: CETIRIZINE 10 MG TABLET PO SCH (11:48)
[2019-06-17] MEDS: OMEPRAZOLE 20 MG CAPSULE PO SCH ×2 (11:48→20:45)
[2019-06-17] MEDS: ENOXAPARIN 40 MG/0.4 ML SYRINGE SQ SCH (11:48)
[2019-06-17] MEDS: LEVOTHYROXINE 75 MCG TABLET PO SCH (12:38)
[2019-06-17] MEDS: IPRATROPIUM/ALBUTEROL 3 ML AMPUL.NEB NEB SCH ×2 (12:49→18:57)
[2019-06-17] MEDS: 0.9 % SODIUM CHLORIDE 10 ML SYRINGE IV SCH ×2 (14:52→21:27)
[2019-06-17] MEDS: CELECOXIB 200 MG CAPSULE PO SCH (19:29)
[2019-06-17] MEDS: SENNOSIDES 1 TABLET PO SCH (20:43)
[2019-06-17] MEDS: traZODone HCL 50 MG TABLET PO PRN (20:44)
[2019-06-17] MEDS: MELATONIN 3 MG TABLET PO SCH (20:44)
[2019-06-17] MEDS: DOCUSATE SODIUM 100 MG CAPSULE PO SCH (20:56)
[2019-06-17] MEDS ORDERED: OMEPRAZOLE 20 MG CAPSULE PO SCH (21:00)
[2019-06-17] MEDS ORDERED: CETIRIZINE 10 MG TABLET PO SCH (21:00)
[2019-06-17] MEDS: FLUTICASONE PROPIONATE SPRAY.NAS NS SCH (21:37)
[2019-06-18] MEDS: LACTATED RINGERS 1,000 ML IV SCH ×2 (01:26→14:25)
[2019-06-18] MEDS: IPRATROPIUM/ALBUTEROL 3 ML AMPUL.NEB NEB SCH (01:26)
[2019-06-18] MEDS: PIPERACILLIN SODIUM/TAZOBACTAM 3.375 GM in DEXTROSE 5% IN WATER 50 ML IV SCH ×5 (01:34→23:45)
[2019-06-18] MEDS: 0.9 % SODIUM CHLORIDE 10 ML SYRINGE IV SCH ×4 (05:04→20:43)
[2019-06-18 06:52] LABS: Hematocrit 30.1 % (34.1-44.9); Mean Cell Volume 91.8 fL (80.0-100.0); Mean Corpuscular HGB Conc 33.2 g/dL (31.0-36.0); Mean Platelet Volume 9.4 fL (7.4-10.4); Platelet Count 249 K/mcL (140-440); RBC 3.28 M/mcL (3.59-5.38); Red Cell Distribution Width 12.6 % (11.5-14.5); WBC 14.4 K/mcL (4.50-11.00)
[2019-06-18] MEDS: LEVOTHYROXINE 75 MCG TABLET PO SCH (06:54)
[2019-06-18 07:15] LABS: ALT/SGPT 18 U/l (0-40); AST/SGOT 15 U/l (0-37); Albumin 3.5 gm/dL (3.2-5.2); Albumin/Globulin Ratio 1.3 (1.0-2.3); Alkaline Phosphatase 81 U/L (39-117); Bilirubin,Total 0.5 mg/dL (0.0-1.0); Blood Urea Nitrogen 9 mg/dl (8-23); C-Reactive Protein 13.7 mg/dl (0.0-0.8); Calcium 9.1 mg/dl (8.6-10.4); Carbon Dioxide 25 mmol/L (22-30); Chloride 98 mmol/L (96-108); Globulin 2.8 gm/dL (2.2-3.7); Glomerular Filtration Rate 63; Glucose 116 mg/dL (70-105)
[2019-06-18 07:50] LABS: Erythrocyte Sedimentation Rate 69 mm/hr (0-20)
[2019-06-18 08:05] LABS: Eosinophils % (Manual) 4 % (0-7); Lymphocytes % 13 % (15-49); Monocytes % (Manual) 8 % (1-12); Platelet Estimate NORMAL (NORMAL); RBC Morphology NORMAL (NORMAL); Segmented Neutrophils % 75 % (38-78)
[2019-06-18] MEDS ORDERED: LEVOTHYROXINE 75 MCG TABLET PO SCH (09:00)
[2019-06-18] MEDS ORDERED: ASPIRIN 81 MG TAB.CHEW PO SCH (09:00)
[2019-06-18] MEDS ORDERED: ENOXAPARIN 40 MG/0.4 ML SYRINGE SQ SCH (09:00)
[2019-06-18] MEDS ORDERED: CETIRIZINE 10 MG TABLET PO SCH (09:00)
[2019-06-18] MEDS ORDERED: LISINOPRIL 5 MG TABLET PO SCH (09:00)
[2019-06-18] MEDS ORDERED: LACTOBACILLUS 1 CAPSULE PO SCH (09:00)
[2019-06-18] MEDS: ENOXAPARIN 40 MG/0.4 ML SYRINGE SQ SCH (09:51)
[2019-06-18] MEDS: FISH OIL 1,000 MG CAPSULE PO SCH (09:52)
[2019-06-18] MEDS: LACTOBACILLUS 1 CAPSULE PO SCH (09:52)
[2019-06-18] MEDS: CETIRIZINE 10 MG TABLET PO SCH (09:53)
[2019-06-18] MEDS: ASPIRIN 81 MG TAB.CHEW PO SCH (09:53)
[2019-06-18] MEDS: LISINOPRIL 5 MG TABLET PO SCH (09:53)
[2019-06-18] MEDS: VITAMIN D3 5,000 UNIT CAPSULE PO SCH (09:53)
[2019-06-18] MEDS: guaiFENesin 600 MG TAB.SR.12H PO SCH ×2 (09:55→20:43)
[2019-06-18] MEDS: OMEPRAZOLE 20 MG CAPSULE PO SCH ×2 (09:55→20:43)
[2019-06-18] MEDS: FLUTICASONE PROPIONATE SPRAY.NAS NS SCH ×2 (09:56→20:44)
[2019-06-18] MEDS: DOCUSATE SODIUM 100 MG CAPSULE PO SCH ×2 (09:57→20:44)
--- NOTE | 2019-06-18 10:04 | Internal Med Progress Note ---
Medical - PN: Subj Patient information: Note initiated : 06/18/19 at 10:01 am Service Date, if different from initiated Date: [] Patient: Queenie Marrero 73 y/o F admitted on 06/17/19 for Sinus infection. Chief Complaint: [] Interval history: 73-year-old female with a history of chronic sinusitis, chronic obstructive airway disease, probable GERD and acid reflux induced airway disease, status post sinus surgery, was brought to the ER because of fever and intermittent confusion. Patient was having chronic sinusitis and has been seen by infectious disease and patient was recently on doxycycline 100 twice daily based on the culture report. For the last 24-hour patient was having fever chills worsening cough with a yellow sinus drainage. Patient also reported having previous epi sodes of pneumonia but no chest pain no palpitations no shortness of breath. She is having cough which is nonproductive. She also has significant postnasal drip. She also reported worsening GERD symptoms recently. She denies any abdominal symptoms no diarrhea no constipation. She reported history of C. difficile PCR positive in the past. Her sinus symptoms started following a sinus surgery and she had a nasal culture done which is positive for MSSA and she was on doxycycline multiple times without much improvement according to the patient. Her viral panel was negative. She also had a bronchial lavage and CSF study which were all negative. She was seen by pulmonology and reported having chronic obstructive lung disease which improved with the Advair and albuterol. Patient's intermittent confusion improved by the time she was evaluated in the ER. She continued having fever and tachycardia no hypotension no lactic acidosis no tachypnea chest x-ray was unremarkable for any pneumonia. She underwent a sinus CT which showed worsening sinusitis of the maxillary more on the left side. She also has sinus tenderness on examination. 06/18-patient doing well. No overnight events. No concerns per staff. No fever chills nausea vomiting. White count down to 14.4. Continue IV antibiotic coverage. No concerns expressed by nursing staff. Remains afebrile. Ambulating. No headache or vision changes - Constitutional Vitals: Vital Signs Temp Pulse Resp BP Pulse Ox 98.0 F 74 18 117/68 93 06/18/19 07:37 06/18/19 07:37 06/18/19 07:37 06/18/19 07:37 06/18/19 07:37 Period Temp Pulse Resp BP Sys/Uriostegui Pulse Ox Last 24 Hr 97.9 F-98.9 F 73-93 15-20 114-132/61-75 93-97 Intake and Output 06/17/19 06/18/19 06/18/19 21:59 05:59 13:59 Intake Total 314 45 0436 Output Total 300 Balance 352 94 3688 Weight 175 lb 12.8 oz Intake & Output: Intake & Output 06/17/19 06/18/19 06/18/19 21:59 05:59 13:59 Intake Total 261 09 8175 Output Total 300 Balance 796 07 3063 Weight 175 lb 12.8 oz Intake: IV 034 57 1894 Lactated Ringers 1,000 ml @ 100 1000 mls/hr IV .Q10H JEANETTE Rx#: [id number] Zosyn 3.375 gm In Dextrose 5% 100 50 50 in Water 50 ml @ 100 mls/hr IV Q6H JEANETTE Rx#:[id number] Oral 400 120 Output: Void Amount 300 Other: Urine Appearance Clear Urine Color Dark Yellow Urine Odor Normal # Voids 2 General appearance: no acute distress Exam: Alert oriented Nonlabored breathing No anxiety No facial swelling Medical - PN: Obj Da - Labs CBC & Chem 7: 06/18/19 05:40 06/18/19 05:40 Labs: Abnormal Lab Results 06/18/19 06/18/19 06/16/19 05:40 05:40 23:00 WBC 14.4 H RBC 3.28 L Hgb 10.0 L Hct 30.1 L Gran % Lymph % (Auto) Gran # Lymph # (Auto) [place] # (Auto) Lymphocytes % 13 L ESR 69 H Glucose 116 H 132 H C-Reactive Protein 13.7 H 1.5 H 06/16/19 23:00 WBC 18.2 H RBC Hgb Hct Gran % 90.5 H Lymph % (Auto) 3.7 L Gran # 16.46 H Lymph # (Auto) 0.68 L [place] # (Auto) 0.96 H Lymphocytes % ESR 43 H Glucose C-Reactive Protein Meds: Medications Acetaminophen (Tylenol) 650 mg PO Q6HP PRN; Protocol PRN Reason: Per Pain Protocol/Fever > 101 Albuterol Sulfate (Ventolin) 2.5 mg NEB Q2HP PRN PRN Reason: Shortness Of Breath Aspirin (Aspirin) 81 mg PO DAILY [facility] Last Admin: 06/18/19 09:53 Dose: 81 mg Documented by: Celecoxib (Celebrex) 200 mg PO HS@1900 [facility] Last Admin: 06/17/19 19:29 Dose: 200 mg Documented by: Cetirizine HCl (Zyrtec) 10 mg PO QDAY [facility] Last Admin: 06/18/19 09:53 Dose: 10 mg Documented by: Docusate Sodium (Colace) 100 mg PO BID [facility] Last Admin: 06/18/19 09:57 Dose: 100 mg Documented by: Enoxaparin Sodium (Lovenox) 40 mg SQ DAILY [facility] Last Admin: 06/18/19 09:51 Dose: 40 mg Documented by: Fish Oil (Fish Oil) 1,000 mg PO DAILY [facility] Last Admin: 06/18/19 09:52 Dose: 1,000 mg Documented by: Fluticasone Propionate (Flonase) 2 spray NS BID [facility] Last Admin: 06/18/19 09:56 Dose: Not Given Documented by: Guaifenesin (Mucinex) 600 mg PO BID [facility] Last Admin: 06/18/19 09:55 Dose: 600 mg Documented by: Piperacillin Sod/Tazobactam (Sod 3.375 gm/ Dextrose) 50 mls @ 100 mls/hr IV Q6H [facility]; Protocol Last Infusion: 06/18/19 08:50 Dose: Infused Documented by: Lactobacillus Rhamnosus (Culturelle) 1 cap PO DAILY [facility] Last Admin: 06/18/19 09:52 Dose: 1 cap Documented by: Levothyroxine Sodium (Synthroid) 75 mcg PO ACB [facility] Last Admin: 06/18/19 06:54 Dose: 75 mcg Documented by: Lisinopril (Zestril) 5 mg PO QDAY [facility] Last Admin: 06/18/19 09:53 Dose: 5 mg Documented by: Melatonin (Melatonin 3mg Tablet) 9 mg PO [facility] Last Admin: 06/17/19 20:44 Dose: 9 mg Documented by: Omeprazole (Prilosec) 20 mg PO BID [facility] Last Admin: 06/18/19 09:55 Dose: 20 mg Documented by: Ondansetron HCl (Zofran) 4 mg IV Q6HP PRN PRN Reason: Nausea And Vomiting Senna (Senokot) 2 tab PO [facility] Last Admin: 06/17/19 20:43 Dose: 2 tab Documented by: Sodium Chloride (Saline Flush) 10 ml IV Q8 [facility] Last Admin: 06/18/19 05:04 Dose: Not Given Documented by: Trazodone HCl (Desyrel) 25 mg PO HSP PRN PRN Reason: Insomnia Last Admin: 06/17/19 20:44 Dose: 25 mg Documented by: Vitamin D (Vitamin D3) 5,000 unit PO DAILY [facility] Last Admin: 06/18/19 09:53 Dose: 5,000 unit Documented by: Medical - PN: A/P - Time Spent With Patient Total time spent is greater than 50% in coordination of care (as documented) at patient's floor/unit and/or counseling patient: 25 - 35 minutes (1) Sepsis Status: Acute Assessment and plan: * Sepsis secondary to sinusitis-responding to antibiotic coverage. White count downtrending now at 14.4. Hemodynamic stabilized. * Recurrent sinusitis previously managed by ENT. Was ongoing treatment per ID as outpatient on doxycycline. Now admitted for failed outpatient treatment and sepsis. Currently on Zosyn with clinical improvement noted. Staph aureus on previous culture. * Acute encephalopathy clinically resolved * History of COPD continue bronchodilators * History of hypertension continue MEHNAZ inhibitor * Hypothyroidism continue thyroxine * DVT prophylaxis on Lovenox Plan * Continue antibiotic coverage * Sepsis management guidelines * Primary medical condition management home meds Current Visit: Yes Medical - PN: Qual - VTE Deep Vein Thrombosis/Pulmonary Embolism Present on Admission: No
[2019-06-18] MEDS: ALBUTEROL SULFATE 2.5 MG/3 ML NEBULIZER NEB PRN ×2 (14:26→19:15)
[2019-06-18] MEDS: CELECOXIB 200 MG CAPSULE PO SCH (18:47)
[2019-06-18] MEDS: MELATONIN 3 MG TABLET PO SCH (20:43)
[2019-06-18] MEDS: SENNOSIDES 1 TABLET PO SCH (20:44)
[2019-06-18] MEDS: traZODone HCL 50 MG TABLET PO PRN (20:44)
[2019-06-19] MEDS: PIPERACILLIN SODIUM/TAZOBACTAM 3.375 GM in DEXTROSE 5% IN WATER 50 ML IV SCH ×3 (06:07→18:15)
[2019-06-19] MEDS: 0.9 % SODIUM CHLORIDE 10 ML SYRINGE IV SCH ×4 (06:08→18:15)
[2019-06-19] MEDS ORDERED: AMOXICILLIN/POTASSIUM CLAV 875 MG TABLET PO SCH (08:00)
[2019-06-19] MEDS: LEVOTHYROXINE 75 MCG TABLET PO SCH (08:24)
[2019-06-19] MEDS: CETIRIZINE 10 MG TABLET PO SCH (08:53)
[2019-06-19] MEDS: OMEPRAZOLE 20 MG CAPSULE PO SCH ×2 (08:53→19:17)
[2019-06-19] MEDS: ASPIRIN 81 MG TAB.CHEW PO SCH (08:53)
[2019-06-19] MEDS: guaiFENesin 600 MG TAB.SR.12H PO SCH ×2 (08:54→21:49)
[2019-06-19] MEDS: VITAMIN D3 5,000 UNIT CAPSULE PO SCH (08:54)
[2019-06-19] MEDS: LISINOPRIL 5 MG TABLET PO SCH (08:54)
[2019-06-19] MEDS: LACTOBACILLUS 1 CAPSULE PO SCH (08:54)
[2019-06-19] MEDS: ENOXAPARIN 40 MG/0.4 ML SYRINGE SQ SCH (08:54)
[2019-06-19] MEDS: FISH OIL 1,000 MG CAPSULE PO SCH (08:54)
[2019-06-19] MEDS: FLUTICASONE PROPIONATE SPRAY.NAS NS SCH ×2 (08:55→21:53)
[2019-06-19] MEDS: DOCUSATE SODIUM 100 MG CAPSULE PO SCH ×2 (08:55→21:53)
--- NOTE | 2019-06-19 10:22 | Internal Med Progress Note ---
Medical - PN: Subj Patient information: Note initiated : 06/19/19 at 10:20 am Service Date, if different from initiated Date: [] Patient: Queenie Marrero 73 y/o F admitted on 06/17/19 for Sinus infection. Chief Complaint: [] Interval history: 73-year-old female with a history of chronic sinusitis, chronic obstructive airway disease, probable GERD and acid reflux induced airway disease, status post sinus surgery, was brought to the ER because of fever and intermittent confusion. Patient was having chronic sinusitis and has been seen by infectious disease and patient was recently on doxycycline 100 twice daily based on the culture report. For the last 24-hour patient was having fever chills worsening cough with a yellow sinus drainage. Patient also reported having previous epi sodes of pneumonia but no chest pain no palpitations no shortness of breath. She is having cough which is nonproductive. She also has significant postnasal drip. She also reported worsening GERD symptoms recently. She denies any abdominal symptoms no diarrhea no constipation. She reported history of C. difficile PCR positive in the past. Her sinus symptoms started following a sinus surgery and she had a nasal culture done which is positive for MSSA and she was on doxycycline multiple times without much improvement according to the patient. Her viral panel was negative. She also had a bronchial lavage and CSF study which were all negative. She was seen by pulmonology and reported having chronic obstructive lung disease which improved with the Advair and albuterol. Patient's intermittent confusion improved by the time she was evaluated in the ER. She continued having fever and tachycardia no hypotension no lactic acidosis no tachypnea chest x-ray was unremarkable for any pneumonia. She underwent a sinus CT which showed worsening sinusitis of the maxillary more on the left side. She also has sinus tenderness on examination. 06/18-patient doing well. No overnight events. No concerns per staff. No fever chills nausea vomiting. White count down to 14.4. Continue IV antibiotic coverage. No concerns expressed by nursing staff. Remains afebrile. Ambulating. No headache or vision changes 06/19-patient doing well. Improving clinically. Anticipate discharge in 24 hours. Continuing antibiotic coverage. Transition to oral antibiotics in 24 hours. - Constitutional Vitals: Vital Signs Temp Pulse Resp BP Pulse Ox 97.7 F 77 16 119/69 96 06/19/19 08:00 06/19/19 04:21 06/19/19 08:00 06/19/19 08:00 06/19/19 08:00 Period Temp Pulse Resp BP Sys/Uriostegui Pulse Ox Last 24 Hr 97.6 F-98.4 F 76-105 16-20 119-130/61-70 92-96 Intake and Output 06/18/19 06/19/19 06/19/19 21:59 05:59 13:59 Intake Total 400 250 530 Output Total 2125 200 200 Balance -1725 50 330 Weight 175 lb 12.8 oz Intake & Output: Intake & Output 06/18/19 06/19/19 06/19/19 21:59 05:59 13:59 Intake Total 400 250 530 Output Total 2125 200 200 Balance -1725 50 330 Weight 175 lb 12.8 oz Intake: IV 50 50 50 Zosyn 3.375 gm In Dextrose 5% 50 50 50 in Water 50 ml @ 100 mls/hr IV Q6H [facility] Rx#:[id number] Oral 350 200 480 Output: Void Amount 2125 200 200 Other: Meal Dinner Breakfast Percent of Meal Consumed 100% 100% Feeding Ability Independent Independent Urine Appearance Clear Clear Clear Urine Color Bright Yellow Bright Yellow Dark Yellow Urine Odor Normal Normal General appearance: no acute distress Exam: No facial swelling Nonlabored breathing No anxiety Medical - PN: Obj Da - Labs CBC & Chem 7: 06/18/19 05:40 06/18/19 05:40 Labs: Abnormal Lab Results 06/18/19 06/18/19 06/16/19 05:40 05:40 23:00 WBC 14.4 H RBC 3.28 L Hgb 10.0 L Hct 30.1 L Gran % Lymph % (Auto) Gran # Lymph # (Auto) Butler # (Auto) Lymphocytes % 13 L ESR 69 H Glucose 116 H 132 H C-Reactive Protein 13.7 H 1.5 H 06/16/19 23:00 WBC 18.2 H RBC Hgb Hct Gran % 90.5 H Lymph % (Auto) 3.7 L Gran # 16.46 H Lymph # (Auto) 0.68 L Butler # (Auto) 0.96 H Lymphocytes % ESR 43 H Glucose C-Reactive Protein Meds: Medications Acetaminophen (Tylenol) 650 mg PO Q6HP PRN; Protocol PRN Reason: Per Pain Protocol/Fever > 101 Albuterol Sulfate (Ventolin) 2.5 mg NEB Q2HP PRN PRN Reason: Shortness Of Breath Last Admin: 06/18/19 19:15 Dose: 2.5 mg Documented by: Amoxicillin/Clavulanate [facility] ([facility]) [facility] Admin: 06/19/19 09:43 Dose: 875 mg Documented by: Aspirin (Aspirin) 81 mg PO DAILY [facility] Last Admin: 06/19/19 08:53 Dose: 81 mg Documented by: Celecoxib (Celebrex) 200 mg PO HS@1900 [facility] Last Admin: 06/18/19 18:47 Dose: 200 mg Documented by: Cetirizine HCl (Zyrtec) 10 mg PO QDAY [facility] Last Admin: 06/19/19 08:53 Dose: 10 mg Documented by: Docusate Sodium (Colace) 100 mg PO BID [facility] Last Admin: 06/19/19 08:55 Dose: Not Given Documented by: Enoxaparin Sodium (Lovenox) 40 mg SQ DAILY [facility] Last Admin: 06/19/19 08:54 Dose: 40 mg Documented by: Fish Oil (Fish Oil) 1,000 mg PO DAILY [facility] Last Admin: 06/19/19 08:54 Dose: 1,000 mg Documented by: Fluticasone Propionate (Flonase) 2 spray NS BID [facility] Last Admin: 06/19/19 08:55 Dose: Not Given Documented by: Guaifenesin (Mucinex) 600 mg PO BID [facility] Last Admin: 06/19/19 08:54 Dose: 600 mg Documented by: Lactobacillus Rhamnosus (Culturelle) 1 cap PO DAILY [facility] Last Admin: 06/19/19 08:54 Dose: 1 cap Documented by: Levothyroxine Sodium (Synthroid) 75 mcg PO ACB [facility] Last Admin: 06/19/19 08:24 Dose: 75 mcg Documented by: Lisinopril (Zestril) 5 mg PO QDAY [facility] Last Admin: 06/19/19 08:54 Dose: 5 mg Documented by: Melatonin (Melatonin 3mg Tablet) 9 mg PO HS [facility] Last Admin: 06/18/19 20:43 Dose: 9 mg Documented by: Omeprazole (Prilosec) 20 mg PO BID [facility] Last Admin: 06/19/19 08:53 Dose: 20 mg Documented by: Ondansetron HCl (Zofran) 4 mg IV Q6HP PRN PRN Reason: Nausea And Vomiting Last Admin: 06/18/19 18:51 Dose: 4 mg Documented by: Pino (Senokot) 2 tab PO HS [facility] Last Admin: 06/18/19 20:44 Dose: Not Given Documented by: Sodium Chloride (Saline Flush) 10 ml IV Q8 [facility] Last Admin: 06/19/19 06:51 Dose: 10 ml Documented by: Trazodone HCl (Desyrel) 25 mg PO HSP PRN PRN Reason: Insomnia Last Admin: 06/18/19 20:44 Dose: 25 mg Documented by: Vitamin D (Vitamin D3) 5,000 unit PO DAILY [facility] Last Admin: 06/19/19 08:54 Dose: 5,000 unit Documented by: Medical - PN: A/P - Time Spent With Patient Total time spent is greater than 50% in coordination of care (as documented) at patient's floor/unit and/or counseling patient: 15 - 24 minutes (1) Sepsis Status: Acute Assessment and plan: * Sepsis secondary to sinusitis-clinically responding to antibiotic coverage. White count downtrending now at 14.4. Hemodynamic stabilized. * Recurrent sinusitis previously managed by ENT. Scheduled for outpatient ENT follow-up. Failed treatment as outpatient on doxycycline. Continue Zosyn for additional 24 hours and transition to oral Augmentin on discharge * Acute encephalopathy clinically resolved * History of COPD continue bronchodilators * History of hypertension continue MEHNAZ inhibitor * Hypothyroidism continue thyroxine * DVT prophylaxis on Lovenox Plan * Transition to oral Augmentin on discharge in 24 hours * Primary medical condition management home meds * Outpatient ENT appointment on discharge Current Visit: Yes Medical - PN: Qual - VTE Deep Vein Thrombosis/Pulmonary Embolism Present on Admission: No
[2019-06-19 11:09] LABS: Hematocrit 33.7 % (34.1-44.9); Hemoglobin 11.2 g/dL (11.2-15.7); Mean Cell Volume 92.8 fL (80.0-100.0); Mean Corpuscular HGB Conc 33.2 g/dL (31.0-36.0); Mean Platelet Volume 9.4 fL (7.4-10.4); Platelet Count 290 K/mcL (140-440); RBC 3.63 M/mcL (3.59-5.38); Red Cell Distribution Width 12.7 % (11.5-14.5); WBC 6.1 K/mcL (4.50-11.00)
[2019-06-19 11:26] LABS: ALT/SGPT 21 U/l (0-40); AST/SGOT 15 U/l (0-37); Albumin/Globulin Ratio 1.3 (1.0-2.3); Alkaline Phosphatase 69 U/L (39-117); Bilirubin,Direct < 0.2 mg/dL (0.0-0.3); Bilirubin,Total 0.3 mg/dL (0.0-1.0); Blood Urea Nitrogen 10 mg/dl (8-23); Calcium 9.4 mg/dl (8.6-10.4); Carbon Dioxide 23 mmol/L (22-30); Chloride 103 mmol/L (96-108); Glomerular Filtration Rate 56; Glucose 108 mg/dL (70-105); Lactate Dehydrogenase 165 U/L (94-250); Phosphorous 3.9 mg/dL (2.7-4.5); Triglycerides 70 mg/dl (<150); Uric Acid 2.6 mg/dL (2.5-8.0)
[2019-06-19 12:22] LABS: Band Neutrophils % 3 % (0-10); Basophils % (Manual) 1 % (0-2); Eosinophils % (Manual) 8 % (0-7); Lymphocytes % 18 % (15-49); Monocytes % (Manual) 2 % (1-12); Platelet Estimate NORMAL (NORMAL); RBC Morphology NORMAL (NORMAL); Segmented Neutrophils % 68 % (38-78)
[2019-06-19] MEDS: ALBUTEROL SULFATE 2.5 MG/3 ML NEBULIZER NEB PRN ×2 (14:08→20:57)
[2019-06-19] MEDS: CELECOXIB 200 MG CAPSULE PO SCH (19:12)
[2019-06-19] MEDS: MELATONIN 3 MG TABLET PO SCH (21:49)
[2019-06-19] MEDS: SENNOSIDES 1 TABLET PO SCH (21:53)
[2019-06-20] MEDS: 0.9 % SODIUM CHLORIDE 10 ML SYRINGE IV SCH ×2 (00:18→06:03)
[2019-06-20] MEDS: PIPERACILLIN SODIUM/TAZOBACTAM 3.375 GM in DEXTROSE 5% IN WATER 50 ML IV SCH ×2 (00:19→06:03)
[2019-06-20] MEDS: LEVOTHYROXINE 75 MCG TABLET PO SCH (07:02)
[2019-06-20] MEDS ORDERED: OMEPRAZOLE 20 MG CAPSULE PO SCH (07:30)
--- NOTE | 2019-06-20 08:13 | Discharge Summary ---
Medical - DS: Prov Patient information: Note initiated : 06/20/19 at 8:11 am Service Date, if different from initiated Date: [] Patient: Queenie Marrero 73 y/o F admitted on 06/17/19 for Sinus infection. Chief Complaint: [] Date of admission: 06/17/19 03:16 Discharge date: 06/20/19 Primary care physician: Aditya Rand Consults: 06/17/19 15:29 Consult to Physician [CONS] Routine Comment: Consulting Provider: Landry Moss Reason For Exam: Physician to Consult Medical - DS: Meds - Discharge Medications Prescriptions: Amoxicillin/Potassium Clav [Augmentin] 875 mg PO Q12H #14 tab Transmission Status: Pending to [facility] 2005 Active and Home Medications: Home Medications Cholecalciferol (Vitamin D3) [Vitamin D3] 5,000 unit PO DAILY 10/12/17 [History Confirmed 06/17/19 Last Taken 06/16/19 08:00] Melatonin 10 mg PO HS 10/12/17 [History Confirmed 06/17/19 Last Taken 06/16/19 20:00] aspirin 81 mg tablet,delayed release 81 mg PO QDAY 04/25/18 [History Confirmed 06/17/19 Last Taken 06/16/19 08:00] omega-3 fatty acids 1,000 mg capsule 1,000 mg PO QDAY 04/25/18 [History Confirmed 06/17/19 Last Taken 06/16/19 08:00] cetirizine 10 mg tablet 10 mg PO QDAY 12/04/18 [History Confirmed 06/17/19 Last Taken Unknown] lactobacillus combination no.9 4 billion cell capsule 4,000 mmu cells PO QDAY 12/25/18 [History Confirmed 06/17/19 Last Taken Unknown] lisinopril 5 mg tablet 5 mg PO QDAY #90 tab 01/08/19 [Rx Confirmed 06/17/19 Last Taken Unknown] fluticasone propionate 50 mcg/actuation nasal spray,suspension 2 spray INTRANASAL BID 01/24/19 [History Confirmed 06/17/19 Last Taken 06/15/19 12:00] food enzymes 1 dose PO HS 02/06/19 [History Confirmed 06/16/19 Last Taken 06/16/19 19:00] mecobalamin (vitamin B12) 5,000 mcg disintegrating tablet mcg PO 02/06/19 [History Confirmed 06/16/19 Last Taken 06/16/19 08:00] multivitamin with minerals 1 tab PO QDAY tab 02/06/19 [History Confirmed 06/17/19 Last Taken Unknown] omeprazole 20 mg capsule,delayed release 20 mg PO BID 03/14/19 [History Confirmed 06/17/19 Last Taken 06/16/19 19:00] nebulizer accessories See Rx Instructions .ROUTE .MEDSUPPLY #1 each 06/01/19 [Rx Confirmed 06/17/19 Last Taken Unknown] nebulizer machine #1 ea 06/01/19 [Rx Confirmed 06/16/19 Last Taken Unknown] albuterol sulfate See Rx Instructions .ROUTE .COMPLEX #75 milliliter 06/12/19 [Rx Confirmed 06/17/19 Last Taken 06/16/19 21:00] Celecoxib 200 mg PO HS@1900 06/17/19 [History Confirmed 06/17/19 Last Taken 06/15/19 19:00] Levothyroxine Sodium 75 mcg PO QDAY 06/17/19 [History Confirmed 06/17/19 Last Taken 06/16/19 08:00] Amoxicillin/Potassium Clav [Augmentin] 875 mg PO Q12H #14 tab 06/20/19 [Rx Last Taken Unknown] Medical - DS: Hosp Hospital Course: Discharge diagnosis * Sepsis secondary to sinusitis-clinically responding to antibiotic coverage. White count downtrending now at 14.4. Hemodynamic stabilized. * Recurrent sinusitis with sepsis. Failed treatment as outpatient on doxycycline. Responded well to IV Zosyn. Continue additional 7 days oral Augmentin. Scheduled for outpatient ENT follow-up. * Acute encephalopathy clinically resolved * History of COPD stable on bronchodilators * History of hypertension managed on home dose MEHNAZ inhibitor * Hypothyroidism managed on home dose thyroxine Brief hospital course 73-year-old female with a history of chronic sinusitis, chronic obstructive airway disease, probable GERD and acid reflux induced airway disease, status post sinus surgery, was brought to the ER because of fever and intermittent confusion. Patient was having chronic sinusitis and has been seen by infectious disease and patient was recently on doxycycline 100 twice daily based on the culture report. For the last 24-hour patient was having fever chills worsening cough with a yellow sinus drainage. Patient also reported having previous episodes of pneumonia but no chest pain no palpitations no shortness of breath. She is having cough which is nonproductive. She also has significant postnasal drip. She also reported worsening GERD symptoms recently. She denies any abdominal symptoms no diarrhea no constipation. She reported history of C. difficile PCR positive in the past. Her sinus symptoms started following a sinus surgery and she had a nasal culture done which is positive for MSSA and she was on doxycycline multiple times without much improvement according to the patient. Her viral panel was negative. She also had a bronchial lavage and CSF study which were all negative. She was seen by pulmonology and reported having chronic obstructive lung disease which improved with the Advair and albuterol. Patient's intermittent confusion improved by the time she was evaluated in the ER. She continued having fever and tachycardia no hypotension no lactic acidosis no tachypnea chest x-ray was unremarkable for any pneumonia. She underwent a sinus CT which showed worsening sinusitis of the maxillary more on the left side. She also has sinus tenderness on examination. 06/18-patient doing well. No overnight events. No concerns per staff. No fever chills nausea vomiting. White count down to 14.4. Continue IV antibiotic coverage. No concerns expressed by nursing staff. Remains afebrile. Ambulating. No headache or vision changes 06/19-patient doing well. Improving clinically. Anticipate discharge in 24 hours. Continuing antibiotic coverage. Transition to oral antibiotics in 24 hours. 06/20-patient doing better. White count down to 6000 from 18. No overnight fever chills. Much improved nasal stuffiness. No headache or facial swelling. Discharging advised to continue Augmentin for additional 7 days and follow-up with ENT as outpatient. Discharge instructions as below Discharge diagnosis: . - Time Spent with Patient Total time spent providing and/or coordinating discharge services: Greater than 30 minutes Medical - DS: Exam - Constitutional Vitals: Vital Signs Temp Pulse Pulse Resp BP Pulse Ox 06/20/19 07:00 99.1 F H 77 16 157/73 95 06/20/19 04:29 98.2 F 71 14 130/73 95 06/20/19 00:07 97.9 F 77 14 127/70 96 06/19/19 20:55 82 20 06/19/19 19:00 98.1 F 85 14 129/69 96 06/19/19 16:00 97.9 F 66 18 122/70 97 06/19/19 14:13 79 16 06/19/19 14:08 96 06/19/19 12:00 98.0 F 16 124/70 95 Intake and Output 06/19/19 06/20/19 06/20/19 21:59 05:59 13:59 Intake Total 650 550 Output Total 1100 350 150 Balance -450 200 -150 Intake: IV 50 50 Zosyn 3.375 gm In Dextrose 5% 50 50 in Water 50 ml @ 100 mls/hr IV Q6H [facility] Rx#:[id number] Oral 600 500 Output: Urine Catheter Amount 150 Void Amount 1100 200 150 Other: Meal Dinner Percent of Meal Consumed 100% Urine Appearance Clear Clear Urine Color Pale Bright Yellow Urine Odor Normal Normal Stool Size Moderate Stool Color Brown Stool Consistency Soft # Bowel Movements 1 Weight 178 lb 4.8 oz Medical - DS: Data Labs on day of discharge: Labs from last 24 hours 06/19/19 06/19/19 10:27 10:27 WBC 6.1 RBC 3.63 Hgb 11.2 Hct 33.7 L MCV 92.8 MCH 30.9 MCHC 33.2 RDW 12.7 Plt Count 290 MPV 9.4 Total Counted 100 Seg Neutrophils % 68 Band Neutrophils % 3 Lymphocytes % 18 Monocytes % (Manual) 2 Eosinophils % (Manual) 8 H Basophils % (Manual) 1 Platelet Estimate Normal RBC Morphology Normal Sodium 139 Potassium 3.4 Chloride 103 Carbon Dioxide 23 Anion Gap 13.0 BUN 10 Creatinine 1.0 GFR Calculation 56 Glucose 108 H Uric Acid 2.6 Calcium 9.4 Phosphorus 3.9 Magnesium 2.1 Total Bilirubin 0.3 Direct Bilirubin < 0.2 GGT 22 AST 15 ALT 21 Alkaline Phosphatase 69 Lactate Dehydrogenase 165 Total Protein 7.0 Albumin 4.0 Globulin 3.0 Albumin/Globulin Ratio 1.3 Triglycerides 70 Preliminary micro results at discharge 06/16/19 23:10 Blood Culture - Preliminary Blood 06/16/19 23:00 Blood Culture - Preliminary Blood Medical - DS: A/P - Patient/Caregiver Discharge Instructions Activity: increase activity as tolerated Diet: Regular Diet Additional Instructions: Antibiotics for additional 7 days Follow-up PCP/ENT in the next 1 to 2 weeks Return to ER if worsening headache, vision changes, fever chills Prescriptions: Amoxicillin/Potassium Clav [Augmentin] 875 mg PO Q12H #14 tab Transmission Status: Pending to [facility] 2005 - Follow up Plan Follow up with: Aditya Rand PA-C [Primary Care Provider] - Disposition: Home, Self-Care Prognosis: Fair Rehab Potential: Fair I certify that the patient requires SNF services: No Overall status at discharge: patient is progressing back to baseline Medical - DS: Qual - VTE Deep Vein Thrombosis/Pulmonary Embolism Present on Admission: No
[2019-06-20] MEDS: CETIRIZINE 10 MG TABLET PO SCH (08:21)
[2019-06-20] MEDS: LISINOPRIL 5 MG TABLET PO SCH (08:21)
[2019-06-20] MEDS: LACTOBACILLUS 1 CAPSULE PO SCH (08:21)
[2019-06-20] MEDS: VITAMIN D3 5,000 UNIT CAPSULE PO SCH (08:21)
[2019-06-20] MEDS: DOCUSATE SODIUM 100 MG CAPSULE PO SCH (08:21)
[2019-06-20] MEDS: ASPIRIN 81 MG TAB.CHEW PO SCH (08:21)
[2019-06-20] MEDS: FISH OIL 1,000 MG CAPSULE PO SCH (08:21)
[2019-06-20] MEDS: guaiFENesin 600 MG TAB.SR.12H PO SCH (08:21)
[2019-06-20] MEDS: FLUTICASONE PROPIONATE SPRAY.NAS NS SCH (08:22)
[2019-06-20] MEDS: ENOXAPARIN 40 MG/0.4 ML SYRINGE SQ SCH (08:22)
== END 2019-06-20 10:20 | disposition home or self-care (01) | DRG 871 ==
LOC: ED 22:25 → MEDSUR 06-17 03:16
PROVIDERS: ADMIT Internal Medicine; ATTEND Internal Medicine